=== PATIENT | female | born 1970 | race Caucasian/White ===

== ENCOUNTER 2016-11-29 16:29 | Inpatient (IN) | payer MEDICAID ==
[~2016-11-29] VITALS: Ht 170.2 cm; Wt 65.8 kg
[2016-11-29 16:57] VITALS: BP 161/103
--- NOTE | 2016-11-29 17:52 | NUR ---
Patient ambulated to bed 11 with family. RN evaluating patient at bedside.
--- NOTE | 2016-11-29 18:07 | NUR ---
PT PRESENTS TO ER W/C/O VOMITING X1 WEEK. HX OF DM, FIBROMYALGIA, ANXIETY.PT STATES SHE VOMITTED BLOOD TODAY/SHE FEELS TIGHTNESS ON HER THROAT;O2 SAT OF 98% AT ROOM AIR;ALSO C/O CP; PT HAS TROUBLE OF SPEAKING;SKIN IS PINK/WARM/DRY; AAOX4 WITH EVEN AND STEADY GAIT; LUNGS CLEAR BL; HR EVEN AND REGULAR; PATIENT STATES PAIN OF 8/10 AT THIS TIME;PATIENT POSITIONED FOR COMFORT; HOB ELEVATED; BEDRAILS UP X2; BED DOWN.ALL MONITORS IN PLACED; ER MD MADE AWARE OF PT STATUS.
--- NOTE | 2016-11-29 18:25 | NUR ---
RECHECKED BP OF PT 4X;207/102 BP;ER NOTIFIED;WILL CONTINUE TO MONITOR PT.
--- NOTE | 2016-11-29 18:33 | NUR ---
Dr. Quach evaluating patient at bedside.
[2016-11-29] MEDS ORDERED: NACL 0.9% 1,000 ML IV ONE (18:45)
[2016-11-29] MEDS ORDERED: KETOROLAC 30 MG/ML VIAL IVP ONE (18:45)
[2016-11-29] MEDS ORDERED: PROMETHAZINE 25 MG/ML VIAL IVP ONE (18:45)
--- NOTE | 2016-11-29 19:28 | NUR ---
PER DR. ORTEGA, PATIENT TO FINISH OFF FLUIDS. DR. QUINONES ALSO AWARE. WILL RETAKE BP.
[2016-11-29] MEDS ORDERED: ENALAPRILAT 2.5 MG/2 ML VIAL IVP ONE (19:40)
[2016-11-29] MEDS ORDERED: HALOPERIDOL IM 5 MG/ML VIAL IVP ONE (20:15)
[2016-11-29] MEDS: NACL 0.9% 1,000 ML IV SCH (20:27)
[2016-11-29] MEDS ORDERED: HYDROcodone/APAP 7.5/325 MG 1 TAB PO PRN (20:30)
[2016-11-29] MEDS ORDERED: ACETAMINOPHEN 325 MG TAB PO PRN (20:30)
[2016-11-29] MEDS ORDERED: INSU100I7 SQ (20:37)
[2016-11-29] MEDS ORDERED: LORA-476 PO (20:37)
[2016-11-29] MEDS ORDERED: METO-485 PO (20:37)
[2016-11-29] MEDS ORDERED: DEXTROSE 50% 50 ML SYR IVP PRN ×2 (20:50)
[2016-11-29] MEDS ORDERED: INSULIN LISPRO SLIDING SCALE 100 UNITS/ML VIAL SUBQ PRN (20:50)
--- NOTE | 2016-11-29 21:00 | NUR ---
Patient will be admitted to care of DR. SIMMS. Admited to TELEMETRY. Will go to room 105B. Belongings list completed. Report to DIONISIO SCHREIBER.
--- NOTE | 2016-11-29 21:00 | NUR ---
PT ARRIVED VIA GURNEY FROM ER. PT IS AAOX4, ROOM AIR, ON TELE MONITOR. NO SIGNS OF ACUTE DISTRESS. IV ACCESS ASYMPTOMATIC AND PARENT. WALKER AT THE BEDSIDE. PLAN OF CARE DISCUSSED, PT VERBALIZED UNDERSTANDING. ALL SAFETY MEASURES MET, BED ON LOW POSITION, BILATERAL HALF SIDE RAILS UP, CALL LIGHT WITHIN REACH, WILL CONTINUE TO MONITOR.
[2016-11-29 21:01] LABS: BASOPHILS % (AUTO) 0.4 % (0.0-2.0); EOSINOPHILS # (AUTO) 0.1 K/uL (0-0.4); EOSINOPHILS % (AUTO) 0.7 % (0.0-4.0); HEMATOCRIT 33.5 % (36-48); HEMOGLOBIN 11.3 g/dL (12.0-16.0); LYMPHOCYTES # (AUTO) 0.5 K/uL (2.5-16.5); LYMPHOCYTES % (AUTO) 4.1 % (20.5-51.1); MEAN CORPUSCULAR HEMOGLOBIN 32 pg (27-31); MEAN CORPUSCULAR HGB CONC 34 g/dL (33-37); MEAN CORPUSCULAR VOLUME 95 fL (80-94); MONOCYTES # (AUTO) 0.5 K/uL (0.8-1.0); MONOCYTES % (AUTO) 4.3 % (1.7-9.3); NEUTROPHILS # (AUTO) 11.1 K/uL (1.8-7.7); NEUTROPHILS % (AUTO) 90.5 % (42.2-75.2); PLATELET COUNT (AUTO) 225 K/uL (140-450); RED BLOOD CELL COUNT(AUTO) 3.54 MIL/uL (4.20-5.40); RED CELL DISTRIBUTION WIDTH 12.5 % (11.6-13.7); WHITE BLOOD COUNT (AUTO) 12.2 K/uL (4.8-10.8)
[2016-11-29 21:05] VITALS: BP 190/70
[2016-11-29 21:16] LABS: ANION GAP 14.8 (8-16); CARBON DIOXIDE 25.7 mmol/L (21-32); CREATININE 1.1 mg/dL (0.6-1.3); POTASSIUM 3.5 mmol/L (3.5-5.1)
[2016-11-29] MEDS ORDERED: METOCLOPRAMIDE 10 MG/2 ML INJ VIAL IVP PRN (21:20)
[2016-11-29] MEDS ORDERED: SODIUM PHOSPHATE 118 ML ENEM RC PRN (21:20)
[2016-11-29 21:23] LABS: PROTHROMBIN TIME 10.3 secs (10.8-13.4)
[2016-11-29 21:31] LABS: FREE T4 (FREE THYROXINE) 1.14 ng/dL (0.76-1.46); MAGNESIUM 1.6 mg/dL (1.8-2.4); PHOSPHORUS 4.1 mg/dL (2.5-4.9); THYROID STIMULATING HORMONE 2.65 uIU/mL (0.34-3.74)
[2016-11-29] MEDS: BLOOD GLUCOSE MONITORING 1 DEV DEV FS SCH (21:43)
[2016-11-29] MEDS: INSULIN LISPRO SLIDING SCALE 100 UNITS/ML VIAL SUBQ PRN (21:47)
[2016-11-29] MEDS: DOCUSATE SODIUM 100 MG GELCAP PO SCH (21:50)
[2016-11-29] MEDS: ONDANSETRON 4 MG/2 ML VIAL IVP PRN (22:25)
[2016-11-29] MEDS: LORazepam 1 MG TAB PO PRN (22:26)
[2016-11-29] MEDS: LISINOPRIL 5 MG TAB PO SCH (22:26)
--- NOTE | 2016-11-29 22:31 | NUR ---
DR. BRANNON MADE AWARE OF PT HIGH BLOOD PRESSURE 190/107. ADMINISTERED ORDERED LISINOPRIL FOR HIGH BLOOD PRESSURE, PT TOLERATED WELL. WILL CONTINUE TO MONITOR.
--- NOTE | 2016-11-29 23:31 | NUR ---
DR BRANNON MADE AWARE OF NEW BLOOD PRESSURE READING OF 176/90, BLOOD PRESSURE IS TRENDING DOWN. DR BRANNON ORDERED TO CONTINUE MONITORING PT AND NO FURTHER MEDICATION NEEDED AT THIS TIME.
--- NOTE | 2016-11-29 23:48 | NUR ---
PT IS SLEEPING, EASY TO AROUSE. NO SIGNS OF ACUTE DISTRESS. BED ON LOW POSITION, BILATERAL HALF SIDE RAILS UP, CALL LIGHT WITHIN REACH, WILL CONTINUE TO MONITOR.
[2016-11-30] VITALS: BP 176/90
[2016-11-30 04:00] VITALS: BP 164/93
--- NOTE | 2016-11-30 04:49 | NUR ---
DR BRANNON PAGED REGARDING MAGNESIUM RESULTS OF 1.6. WILL WAIT FOR CALL BACK.
--- NOTE | 2016-11-30 04:50 | NUR ---
DR BRANNON CALLED BACK. NOTIFIED OF PT MAGNESIUM OF 1.6. DR BRANNON WILL PUT IN NEW ORDER TO BE GIVEN FOR LOW MAGNESIUM. WILL ALSO PUT IN ORDER FOR FLU AND PNEUMONIA VACCINE.
--- NOTE | 2016-11-30 04:54 | NUR ---
PT IS SLEEPING, EASY TO AROUSE. NO SIGNS OF ACUTE DISTRESS, BED IN LOW POSITION, BILATERAL HALF SIDE RAILS UP, CALL LIGHT WITHIN REACH, WILL CONTINUE TO MONITOR.
[2016-11-30] MEDS ORDERED: PNEUMOCOCCAL VACCINE 23 MCG/0.5 ML VIAL IMVAC SCH (04:55)
[2016-11-30] MEDS ORDERED: INFLUENZA VIRUS VACCINE QUAD 0.5 ML SYR IMVAC SCH (04:55)
[2016-11-30] MEDS: BLOOD GLUCOSE MONITORING 1 DEV DEV FS SCH ×4 (06:51→20:54)
--- NOTE | 2016-11-30 07:20 | NUR ---
ENDORSED PT TO AM NURSE. PT IN STABLE CONDITION.
--- NOTE | 2016-11-30 07:21 | NUR ---
RECEIVED PT FROM THE DRIVER'S LICENSE EXAMINER NURSE AT BEDSIDE FOR CONTINUITY OF CARE. PT IS AWAKE AND ALERT. INTRODUCED MYSELF AND UPDATED THE BOARD. PT HAS A WALKER AT BEDSIDE. PT ON ROOM AIR. SKIN INTACT. IV ON L AC 22G NS 50ML, INFUSING. V/S: BP HIGH X2 ON BOTH ARMS. 185/95. C/O ABD PAIN AND NAUSEA. WILL MEDICATE WITH MORNING MEDS. C/O SORE THROAT. WILL CRUSH MEDS AND PUT IN APPLE SAUCE. RESIDENT MD IN ROOM. WILL START ON TORADOL AND SUPPOSITORIES AND ENEMA TO CLEAR OUT BOWELS. PT VERBALIZED UNDERSTANDING. LOW ON MAG TODAY 1.6. SPOKE TO DR. PARIKH. WILL CONTINUE TO MONITOR PT.
[2016-11-30 07:37] LABS: BASOPHILS # (AUTO) 0.2 K/uL (0.00-0.22); EOSINOPHILS # (AUTO) 0.1 K/uL (0-0.4); EOSINOPHILS % (AUTO) 0.6 % (0.0-4.0); HEMATOCRIT 29.2 % (36-48); HEMOGLOBIN 9.5 g/dL (12.0-16.0); LYMPHOCYTES # (AUTO) 0.8 K/uL (2.5-16.5); MEAN CORPUSCULAR HEMOGLOBIN 31 pg (27-31); MEAN CORPUSCULAR HGB CONC 33 g/dL (33-37); MEAN CORPUSCULAR VOLUME 96 fL (80-94); MONOCYTES # (AUTO) 0.9 K/uL (0.8-1.0); MONOCYTES % (AUTO) 10.1 % (1.7-9.3); NEUTROPHILS # (AUTO) 6.8 K/uL (1.8-7.7); NEUTROPHILS % (AUTO) 78.3 % (42.2-75.2); PLATELET COUNT (AUTO) 212 K/uL (140-450); RED BLOOD CELL COUNT(AUTO) 3.05 MIL/uL (4.20-5.40); RED CELL DISTRIBUTION WIDTH 12.6 % (11.6-13.7); WHITE BLOOD COUNT (AUTO) 8.8 K/uL (4.8-10.8)
[2016-11-30 08:00] VITALS: BP 188/91
[2016-11-30 08:02] LABS: ANION GAP 8.7 (8-16); CARBON DIOXIDE 27.8 mmol/L (21-32); CREATININE 1.1 mg/dL (0.6-1.3); POTASSIUM 3.5 mmol/L (3.5-5.1)
[2016-11-30 08:04] LABS: MAGNESIUM 1.6 mg/dL (1.8-2.4); PHOSPHORUS 3.9 mg/dL (2.5-4.9)
[2016-11-30] MEDS: MAGNESIUM CHLORIDE 64 MG TABEC PO SCH (08:39)
[2016-11-30] MEDS: LISINOPRIL 5 MG TAB PO SCH (08:41)
[2016-11-30] MEDS: DOCUSATE SODIUM 100 MG GELCAP PO SCH ×2 (08:41→20:13)
[2016-11-30] MEDS: ONDANSETRON 4 MG/2 ML VIAL IVP PRN (08:42)
[2016-11-30] MEDS: KETOROLAC 30 MG/ML VIAL IVP PRN (08:42)
--- NOTE | 2016-11-30 08:50 | NUR ---
ADMINISTERED MORNING MEDS, INCLUDING ZOFRAN AND TORADOL. PT TOLERATED WELL. WAITING ON SUPPOSITORY ORDERS. WILL CONTINUE TO MONITOR PT.
[2016-11-30] MEDS ORDERED: BISACODYL 10 MG SUPP RC SCH (09:00)
[2016-11-30] MEDS ORDERED: LISINOPRIL 5 MG TAB PO SCH (09:00)
[2016-11-30] MEDS ORDERED: MAGNESIUM OXIDE 400 MG TAB PO SCH (09:10)
[2016-11-30] MEDS ORDERED: LABETALOL 100 MG TAB PO SCH (09:19)
--- NOTE | 2016-11-30 09:51 | NUR ---
PATIENT HAS BEEN SCREENED AND CATEGORIZED HIGH NUTRITION RISK. PATIENT WILL BE SEEN WITHIN 1-2 DAYS OF ADMISSION. 11/30/16-12/01/[address]
--- NOTE | 2016-11-30 10:11 | NUR ---
PT DOWNGRADED TO MED/SURG. REMOVED TELE MONITOR.
[2016-11-30 12:00] VITALS: BP 137/76
[2016-11-30] MEDS: LORazepam 1 MG TAB PO PRN ×2 (12:09→21:08)
--- NOTE | 2016-11-30 12:19 | NUR ---
SO FAR, NO BM TODAY. LAST BM WAS ABOUT 1.5 WEEKS AGO. NO BM EVEN WITH THE SUPPOSITORY. WE WILL TRY ENEMA LATER IN THE AFTERNOON. PER PT, TORADOL HELPED WITH PAIN. NO PAIN AT THIS MOMENT. ADMINISTERED MAG OX AND ATIVAN FOR ANXIETY. PT TOLERATED WELL.
--- NOTE | 2016-11-30 13:03 | NUR ---
LYLE NOTE SPOKE WITH LYLE SALAZAR OF [facility] PH# [phone] EXT [phone] AND SHE SAID [facility] DOES NOT NEED REVIEWS FOR THIS ADMISSION. PER LYLE SAN, REVIEWS AND DISCHARGE NEEDS SHOULD ONLY BE SENT TO [facility]. INITIAL REVIEW FAXED TO [facility] [phone] PH# [phone] LYLE KENNY EXT [phone].
[2016-11-30] MEDS: INSULIN LISPRO SLIDING SCALE 100 UNITS/ML VIAL SUBQ PRN ×3 (13:11→20:16)
--- NOTE | 2016-11-30 13:11 | NUR ---
PT C/O OF IV LEAKING. IV REINFORCED. PT TOLERATED WELL. WILL CONTINUE TO MONITOR PT.
--- NOTE | 2016-11-30 13:53 | NUR ---
11/30/16 RD INITIAL ASSESSMENT COMPLETED PLEASE REFER TO NUTRITION ASSESSMENT UNDER CARE ACTIVITY FOR ESTIMATED NUTRITIONAL NEEDS. 1. CONTINUE CLEAR LIQUID DIET 2. WHEN MEDICALLY FEASIBLE, ADVANCE TO 60 GMS CONSISTENT CARBOHYDRATE TOLERATED 3. RD TO FOLLOW UP WITHIN 2-3 DAYS; HIGH RISK JONATHAN PAYAN, NEENA
--- NOTE | 2016-11-30 14:58 | NUR ---
R/T HERE FOR ECHO.
--- NOTE | 2016-11-30 15:51 | NUR ---
ADMINISTERED FLEET ENEMA. PT TOLERATED WELL. WILL AWAIT AND SEE IF THE ENEMA WORKED.
[2016-11-30 16:00] VITALS: BP 160/86
--- NOTE | 2016-11-30 16:30 | NUR ---
PT CLAIMS SHE HAD A VERY SMALL BM. STILL FEELS VERY FULL. ENCOURAGED PT TO WALK. STUDENT RN WILL WALK WITH HER IN THE HALLS.
--- NOTE | 2016-11-30 18:30 | NUR ---
AMBULATED IN THE HALLWAY. HAD ANOTHER SMALL BM.
[2016-11-30] MEDS ORDERED: METOCLOPRAMIDE 10 MG/2 ML INJ VIAL IVP SCH (19:15)
--- NOTE | 2016-11-30 19:20 | NUR ---
ENDORSED PT TO THE NIGHTSHIFT RN AT BEDSIDE FOR CONTINUITY OF CARE. PT IS AWAKE AND ALERT. IN STABLE CONDITION.
--- NOTE | 2016-11-30 19:22 | NUR ---
RECEIVED PT ON BED AAOX4, DENIES ANY PAIN, IVF INFUSING WELL, PLAN OF CARE DISCUSS, SAFETY MEASURES IN PLACE, CALL LIGHT WITHIN REACH.
[2016-11-30] MEDS ORDERED: METOCLOPRAMIDE 10 MG/2 ML INJ VIAL ONE (19:50)
--- NOTE | 2016-11-30 21:10 | NUR ---
PT COMPLAINING OF ANXIETY, MEDICATED PRN FOR ANXIETY WITH ATIVAN PO ORDERED, DENIES ANY NAUSEA, ALL NEEDS ATTENDED.
[2016-11-30] MEDS: NACL 0.9% 1,000 ML IV SCH (21:22)
[2016-12-01] VITALS: BP 158/89
--- NOTE | 2016-12-01 | NUR ---
PT AWAKE, PT VERBALIZED HAD SMALL LOOSE STOOL, DENIES ANY PAIN OR NAUSEA, VITAL SIGNS TAKEN, BP SLIGHTLY ELEVATED, ASYMPTOMATIC, IVF INFUSING WELL, CONTINUE TO MONITOR CLOSELY.
[2016-12-01] MEDS: NACL 0.9% 1,000 ML IV SCH (04:13)
[2016-12-01] MEDS: ONDANSETRON 4 MG/2 ML VIAL IVP PRN (04:18)
--- NOTE | 2016-12-01 04:20 | NUR ---
PT COMPLAINING OF NAUSEA, NO VOMITING NOTED, MEDICATED PRN WITH ZOFRAN IVP, MONITORED CLOSELY.
[2016-12-01 04:51] LABS: APPEARANCE,URINE HAZY (CLEAR); BILIRUBIN,URINE NEGATIVE (NEGATIVE); BLOOD, URINE 1+ (NEGATIVE); COLOR,URINE YELLOW (YELLOW); LEUKOCYTE ESTERASE ,URINE NEGATIVE (NEGATIVE); NITRITE, URINE NEGATIVE (NEGATIVE); UGLUCOSE TRACE (NEGATIVE)
[2016-12-01 04:59] LABS: BARBITURATE, URINE NEG. ng/ml (NEG <=200); BENZODIAZEPINE, URINE NEG. ng/mL (NEG <=200); CANNABINOID, URINE NEG. ng/mL (NEG <=50); COCAINE, URINE NEG. ng/mL (NEG <=300); OPIATE, URINE NEG. ng/mL (NEG <=2000); PHENCYCLIDINE SCREEN,URINE NEG. ng/mL (NEG <=25)
[2016-12-01 05:12] LABS: RBC,URINE 0-5 (RARE) /HPF (0-5)
[2016-12-01 05:14] LABS: YEAST,URINE Moderate /HPF (None Seen)
[2016-12-01 05:47] LABS: BASOPHILS # (AUTO) 0.1 K/uL (0.00-0.22); BASOPHILS % (AUTO) 1.9 % (0.0-2.0); EOSINOPHILS # (AUTO) 0.1 K/uL (0-0.4); EOSINOPHILS % (AUTO) 1.8 % (0.0-4.0); HEMATOCRIT 30.4 % (36-48); LYMPHOCYTES % (AUTO) 15.7 % (20.5-51.1); MEAN CORPUSCULAR HEMOGLOBIN 31 pg (27-31); MEAN CORPUSCULAR HGB CONC 33 g/dL (33-37); MEAN CORPUSCULAR VOLUME 95 fL (80-94); MONOCYTES # (AUTO) 0.6 K/uL (0.8-1.0); MONOCYTES % (AUTO) 8.9 % (1.7-9.3); NEUTROPHILS # (AUTO) 4.5 K/uL (1.8-7.7); NEUTROPHILS % (AUTO) 71.7 % (42.2-75.2); PLATELET COUNT (AUTO) 214 K/uL (140-450); RED BLOOD CELL COUNT(AUTO) 3.21 MIL/uL (4.20-5.40); RED CELL DISTRIBUTION WIDTH 12.4 % (11.6-13.7); WHITE BLOOD COUNT (AUTO) 6.4 K/uL (4.8-10.8)
--- NOTE | 2016-12-01 05:50 | NUR ---
PT AWAKE, DENIES ANY PAIN OR NAUSEA, BLOOD SUGAR CHECKED WITH 128 RESULT, DUE PO PROTONIX GIVEN, TOLERATED WELL, PT VERBALIZED X2 LOOSE BM THE WHOLE SHIFT, IVF INFUSING WELL, MONITORED CLOSELY.
[2016-12-01 06:16] LABS: ANION GAP 10.7 (8-16); CARBON DIOXIDE 26.7 mmol/L (21-32); POTASSIUM 3.4 mmol/L (3.5-5.1)
[2016-12-01 06:18] VITALS: BP 138/94
[2016-12-01] MEDS: KETOROLAC 30 MG/ML VIAL IVP PRN (06:18)
--- NOTE | 2016-12-01 06:20 | NUR ---
PT COMPLAINING OF PAIN, MEDICATED PRN WITH TORADOL IVP, BP-138/94 ON THE LEFT ARM, HR-83, MONITORED CLOSELY.
[2016-12-01] MEDS ORDERED: PANTOPRAZOLE 40 MG TABEC PO SCH (06:30)
[2016-12-01] MEDS: BLOOD GLUCOSE MONITORING 1 DEV DEV FS SCH ×2 (06:37→11:18)
--- NOTE | 2016-12-01 07:15 | NUR ---
PT SLEEPING, NO SIGNS OF DISTRESS, REPORT GIVEN TO CANDIE GREENE FOR CONTINUITY OF CARE.
--- NOTE | 2016-12-01 07:26 | NUR ---
RECEIVED PT IN BED. AWAKE, WATCHING TV. ALERT ORIENTEDX4. NO SOB NOTED. DENIES ANY PAIN OR DISCOMFORT. PT AMBULATORY. ENCOURAGED PT TO AMBULATE. SAFETY PRECAUTION IN PLACE. CALL LIGHT WITHIN REACH.
[2016-12-01 07:51] VITALS: BP 178/93
[2016-12-01] MEDS: DOCUSATE SODIUM 100 MG GELCAP PO SCH (08:09)
[2016-12-01] MEDS: MAGNESIUM CHLORIDE 64 MG TABEC PO SCH (08:09)
[2016-12-01] MEDS: LORazepam 1 MG TAB PO PRN (08:14)
[2016-12-01] MEDS ORDERED: LISI10TA11 PO (08:15)
[2016-12-01] MEDS ORDERED: DOCU-299 PO (08:20)
[2016-12-01] MEDS ORDERED: ONDA8TAB1 PO (08:23)
[2016-12-01] MEDS ORDERED: OMEP20TC10 PO (08:35)
[2016-12-01] MEDS ORDERED: LISINOPRIL 5 MG TAB PO SCH (09:00)
[2016-12-01] MEDS ORDERED: LABETALOL 100 MG TAB PO SCH (09:00)
[2016-12-01] MEDS ORDERED: POTASSIUM CHLORIDE 10 MEQ TABER PO SCH (09:13)
[2016-12-01 09:15] VITALS: BP 163/94
[2016-12-01] MEDS ORDERED: BISACODYL 10 MG SUPP RC PRN (09:20)
--- NOTE | 2016-12-01 09:20 | NUR ---
DR. PARIKH MADE AWARE OF ELEVATED BLOOD PRESSURE THIS MORNING AND THE RECHECKED BLOOD PRESSURE READING AFTER MORNING BP MEDS WERE GIVEN. TO ORDERS MADE AND CARRIED OUT.
[2016-12-01] MEDS ORDERED: ENALAPRILAT 2.5 MG/2 ML VIAL IVP PRN ×2 (09:30→09:50)
--- NOTE | 2016-12-01 09:35 | NUR ---
RECEIVED A CALL FROM THE PHARMACY REGARDING THE DOSE FOR VASOTEC. PER PHARMACY STARTING DOSE IS AT 1.25MG AND ORDERED DOSE IS [address] PARIKH AWAITING CALL BACK TO CLARIFY.
--- NOTE | 2016-12-01 09:49 | NUR ---
CM NOTE CONCURRENT REVIEW FAXED TO [facility] [phone] # [phone] CM SONNA EXT [phone].
--- NOTE | 2016-12-01 09:57 | NUR ---
DR. PARIKH CALLED BACK AND ORDERS WERE CLARIFIED.
--- NOTE | 2016-12-01 10:28 | NUR ---
FLU VACCINE AND PNA VACCINE OFFERED TO PT. PT AGREES AND VERBALIZED UNDERSTANDING. FLU VACCINE GIVEN IM ON LEFT DELTOID. AND PNA VACCINE GIVEN IM ON RIGHT DELTOID. TOLERATED WELL.
[2016-12-01 11:13] VITALS: BP 144/92
[2016-12-01 11:16] VITALS: BP 144/92
--- NOTE | 2016-12-01 11:16 | NUR ---
DR. PARIKH MADE AWARE OF LATEST BLOOD PRESSURE READING OF PT AND OK FOR DISCHARGE. NO SOB NOTED. DENIES ANY PAIN OR DISCOMFORT AT THIS TIME. DAUGHTER AT BEDSIDE.
--- NOTE | 2016-12-01 11:18 | NUR ---
BLOOD SUGAR WAS CHECKED WITH A 163MG/DL READING. OFFERED PT LUNCH BEFORE GETTING DISCHARGED SO SHE CAN RECEIVE HER INSULIN, BUT PT VERBALIZED THAT SHE DOESN'T WANT TO EAT LUNCH ANYMORE AND JUST WANTS TO GET DISCHARGED. 2 UNITS OF HUMALOG INSULIN PER SLIDING SCALE HELD.
--- NOTE | 2016-12-01 11:35 | NUR ---
DISCHARGE INSTRUCTIONS AND HEALTH TEACHINGS GIVEN AND EXPLAINED TO PT. PT VERBALIZED UNDERSTANDING. DAUGHTER AT BEDSIDE. PT SIGNED DISCHARGE PAPERS. REMINDED PT TO FOLLOW UP WITH PCP PER SCHEDULED ON DISCHARGE PAPERS. PT VERBALIZED UNDERSTANDING. IV CANNULA REMOVED AND INTACT. NAME ARMBAND REMOVED. NO SOB NOTED. DENIES ANY PAIN OR DISCOMFORT AT THIS TIME. PT REFUSED TO BE WHEELED OUT GOING TO THE HOSPITAL PARKING LOT SINCE ACCORDING TO PT HER OTHER DAUGHTER IS ON LABOR RIGHT NOW HERE AT [facility] AND SHE WOULD WANT TO GO THERE TO SEE HER. DAUGHTER ASSISTED PT WITH HER WALKER AND WENT TO OB DEPARTMENT. PT DISCHARGED ON STABLE CONDITION.
[2016-12-01] MEDS ORDERED: METOCLOPRAMIDE 10 MG/2 ML INJ VIAL IVP PRN (19:15)
== END 2016-12-01 11:35 | disposition home or self-care (01) | DRG 48 ==
LOC: MED 16:29 → MTU 20:35
PROVIDERS: ADMIT Family Medicine Sports Medicine; ATTEND Family Medicine Sports Medicine
DX: E11.43 Type 2 diabetes mellitus with diabetic autonomic (poly)neuropathy (principal); D68.59 Other primary thrombophilia; E11.51 Type 2 diabetes mellitus with diabetic peripheral angiopathy without gangrene; E11.65 Type 2 diabetes mellitus with hyperglycemia; E83.42 Hypomagnesemia; K31.84 Gastroparesis; I16.0 Hypertensive urgency; M79.7 Fibromyalgia; F41.9 Anxiety disorder, unspecified; E83.51 Hypocalcemia; E87.6 Hypokalemia; I10 Essential (primary) hypertension; E78.00 Pure hypercholesterolemia, unspecified; Z88.8 Allergy status to other drugs, medicaments and biological substances; Z79.4 Long term (current) use of insulin
CPT/HCPCS: 36415; 71010; 80048; 80305; 81001; 81025; 82150; 82948; 83036; 83605; 83690; 83735; 83880; 84100; 84439; 84443; 84484; 85025; 85610; 85730; 87081; 87086; 90658; 90732; 93005; 93925; 93970; 96361; 96374; 96375; 99285; J1630; J1815; J1885; J2405; J2550; J2765; J3490; J7030; Q0092

== ENCOUNTER 2016-12-29 16:03 | Inpatient (IN) | payer MEDICAID ==
[~2016-12-29] VITALS: Ht 170.2 cm; Wt 71.7 kg
[~2016-12-29 16:03] MED LIST: DOCU-299 PO; INSU100I7 SQ; LISI10TA11 PO; LORA-476 PO; OMEP20TC10 PO; ONDA8TAB1 PO
[2016-12-29 16:19] VITALS: BP 158/79
--- NOTE | 2016-12-29 16:35 | NUR ---
PATIENT BIB AUNT WITH C/O 09/24 "SHARP" NON PROVOKED INTERMITTENT MIDSTERNAL CHEST PAIN X YESTERDAY AT APPROX 1999; PT STATES SHE WAS LAYING DOWN WHEN CP;STARTED;NON PITTING EDEMA NOTED ON BILATERAL LOWER EXTREMITIES;HX OF DM, HTN, FIBROMYALGIA.FEELS NAUSEOUS BUT DENIES V/D; PER PT SHE HAS A DRY COUGH AND RUNNY NOSE THAT SATRTED 4 DAYS AGO;SKIN IS PINK/WARM/DRY; AAOX4 WITH EVEN AND STEADY GAIT; LUNGS CLEAR BL; HR EVEN AND REGULAR;PATIENT POSITIONED FOR COMFORT; HOB ELEVATED; BEDRAILS UP X2; BED DOWN. ALL MONITORS IN PLACED;ER MD MADE AWARE OF PT STATUS.
[2016-12-29] MEDS ORDERED: ASPIRIN 81 MG TAB.CHEW PO ONE (16:40)
[2016-12-29 17:02] LABS: BASOPHILS % (AUTO) 0.5 % (0.0-2.0); EOSINOPHILS # (AUTO) 0.1 K/uL (0-0.4); EOSINOPHILS % (AUTO) 1.3 % (0.0-4.0); HEMATOCRIT 30.4 % (36-48); HEMOGLOBIN 9.9 g/dL (12.0-16.0); LYMPHOCYTES # (AUTO) 0.7 K/uL (2.5-16.5); LYMPHOCYTES % (AUTO) 10.6 % (20.5-51.1); MEAN CORPUSCULAR HEMOGLOBIN 31 pg (27-31); MEAN CORPUSCULAR HGB CONC 33 g/dL (33-37); MEAN CORPUSCULAR VOLUME 94 fL (80-94); MONOCYTES # (AUTO) 0.6 K/uL (0.8-1.0); MONOCYTES % (AUTO) 7.9 % (1.7-9.3); NEUTROPHILS # (AUTO) 5.6 K/uL (1.8-7.7); NEUTROPHILS % (AUTO) 79.7 % (42.2-75.2); PLATELET COUNT (AUTO) 249 K/uL (140-450); RED BLOOD CELL COUNT(AUTO) 3.25 MIL/uL (4.20-5.40); RED CELL DISTRIBUTION WIDTH 12.4 % (11.6-13.7)
--- NOTE | 2016-12-29 17:09 | NUR ---
DR SPRING AT BEDSIDE.
[2016-12-29 17:18] LABS: PROTHROMBIN TIME 9.8 secs (10.8-13.4)
[2016-12-29 17:20] LABS: ALBUMIN 2.1 g/dL (3.4-5.0); ANION GAP 10.8 (8-16); CARBON DIOXIDE 27.5 mmol/L (21-32); CREATININE 1.3 mg/dL (0.6-1.3); POTASSIUM 4.3 mmol/L (3.5-5.1); TOTAL BILIRUBIN 0.3 mg/dL (0.0-1.0)
--- NOTE | 2016-12-29 17:24 | NUR ---
RECYCLED PT'S BP 3 X;BP OF 198/106;AZ 84;DR SPRING NOTIFIED;AWAITING NEW ORDER.
[2016-12-29] MEDS ORDERED: FUROSEMIDE 20 MG/2 ML VIAL IVP ONE (17:45)
[2016-12-29] MEDS ORDERED: ENALAPRILAT 2.5 MG/2 ML VIAL IVP ONE (17:55)
[2016-12-29] MEDS ORDERED: cefTRIAXone 1,000 MG VIAL ONE (17:59)
[2016-12-29] MEDS ORDERED: HYDROcodone/APAP 7.5/325 MG 1 TAB PO PRN (18:10)
[2016-12-29] MEDS ORDERED: ACETAMINOPHEN 325 MG TAB PO PRN (18:10)
[2016-12-29] MEDS ORDERED: CHLO25TA33 PO (18:36)
[2016-12-29] MEDS ORDERED: LORA-476 PO (18:36)
[2016-12-29] MEDS ORDERED: ACET-8386 PO (18:36)
[2016-12-29] MEDS ORDERED: [UNRECOGNIZED DRUG - CODE] PO (18:36)
[2016-12-29] MEDS ORDERED: IMI25 PO (18:36)
[2016-12-29] MEDS ORDERED: ATOR40TA PO (18:36)
[2016-12-29] MEDS ORDERED: ZOLP5TAB1 PO (18:36)
[2016-12-29] MEDS ORDERED: FERR324T29 PO (18:36)
[2016-12-29] MEDS ORDERED: SITA100T8 PO (18:36)
[2016-12-29] MEDS ORDERED: MEDR10TA PO (18:36)
[2016-12-29] MEDS ORDERED: APID SQ (18:36)
[2016-12-29] MEDS ORDERED: [UNRECOGNIZED DRUG - CODE] PO (18:36)
[2016-12-29] MEDS ORDERED: METO-485 PO (18:36)
[2016-12-29] MEDS ORDERED: LOSA50TA1 PO (18:36)
[2016-12-29] MEDS ORDERED: PREG225C PO (18:36)
[2016-12-29 18:43] LABS: CHOL/HDL RATIO 3.6 (1-4.5); FREE T4 (FREE THYROXINE) 0.86 ng/dL (0.76-1.46); MAGNESIUM 1.8 mg/dL (1.8-2.4); PHOSPHORUS 4.4 mg/dL (2.5-4.9); THYROID STIMULATING HORMONE 6.44 uIU/mL (0.34-3.74)
[2016-12-29] MEDS ORDERED: SUMAtriptan 25 MG TAB PO PRN (18:45)
--- NOTE | 2016-12-29 18:50 | NUR ---
TRIED TO GIVE REPORT TO CANDIE GREENBERG;THEY SAID TO WAIT UNTIL BLOOD PRESSURE GOES DOWN;
[2016-12-29] MEDS ORDERED: LABETALOL 100 MG/20 ML VIAL IVP ONE (18:55)
[2016-12-29] MEDS ORDERED: MORPHINE SULFATE 2 MG/ML SYR IVP PRN (18:55)
--- NOTE | 2016-12-29 19:02 | NUR ---
Patient will be admitted to care of DR MONROE. Admited to TELE. Will go to [id number]. Belongings list completed. Report to DIONICIO SCHREIBER.
[2016-12-29 19:05] LABS: APPEARANCE,URINE CLEAR (CLEAR); BILIRUBIN,URINE NEGATIVE (NEGATIVE); BLOOD, URINE 1+ (NEGATIVE); COLOR,URINE YELLOW (YELLOW); LEUKOCYTE ESTERASE ,URINE NEGATIVE (NEGATIVE); NITRITE, URINE NEGATIVE (NEGATIVE); UGLUCOSE 1+ (NEGATIVE)
[2016-12-29 19:14] LABS: BARBITURATE, URINE NEG. ng/ml (NEG <=200); BENZODIAZEPINE, URINE NEG. ng/mL (NEG <=200); CANNABINOID, URINE NEG. ng/mL (NEG <=50); COCAINE, URINE NEG. ng/mL (NEG <=300); OPIATE, URINE NEG. ng/mL (NEG <=2000); PHENCYCLIDINE SCREEN,URINE NEG. ng/mL (NEG <=25); RBC,URINE 0-5 (RARE) /HPF (0-5); WBC,URINE 0-5 (RARE) /HPF (0-5)
[2016-12-29] MEDS ORDERED: DEXTROSE 50% 50 ML SYR IVP PRN (19:20)
--- NOTE | 2016-12-29 19:25 | NUR ---
RECEIVED REPORT FROM DAY SHIFT RN AND PT ARRIVED FROM ER VIA GURNEY ACCOMPANIED BY ER NURSE. PT IS A/OX4, ON ROOM AIR. PT HAS A RIGHT FOREARM IV 20G. PT SKIN IS INTACT. SAFETY PRECAUTIONS IN PLACE. UPDATED BOARD. DISCUSSED PLAN OF CARE WITH PT, PT VERBALIZED UNDERSTANDING. VITAL SIGNS WITHIN NORMAL LIMITS. PT IN STABLE CONDITION, NO SIGNS OF DISTRESS NOTED. BED IN LOW POSITION, CALL LIGHT WITHIN REACH. WILL CONTINUE TO MONITOR.
[2016-12-29 20:00] VITALS: BP 178/90
[2016-12-29] MEDS ORDERED: LISINOPRIL 5 MG TAB PO SCH (20:15)
[2016-12-29] MEDS ORDERED: NITROGLYCERIN 0.4 MG TAB SL PRN (20:40)
[2016-12-29] MEDS ORDERED: LORazepam 1 MG TAB PO PRN (21:00)
[2016-12-29] MEDS ORDERED: INSULIN DETEMIR 100 UNITS/ML 10 ML VIAL SUBQ SCH (21:00)
[2016-12-29] MEDS ORDERED: ATORVASTATIN 20 MG TAB PO SCH (21:00)
[2016-12-29] MEDS ORDERED: LORazepam 1 MG TAB PO SCH (21:00)
[2016-12-29] MEDS ORDERED: PREGABALIN 50 MG CAP PO SCH (21:00)
[2016-12-29] MEDS ORDERED: ZOLPIDEM 5 MG TAB PO SCH (21:00)
[2016-12-29] MEDS ORDERED: METOPROLOL 25 MG TAB PO SCH (21:00)
[2016-12-29] MEDS: BLOOD GLUCOSE MONITORING 1 DEV DEV FS SCH (21:13)
[2016-12-29] MEDS: DOCUSATE SODIUM 100 MG GELCAP PO SCH (21:15)
[2016-12-29] MEDS: ONDANSETRON 4 MG/2 ML VIAL IVP PRN (22:42)
[2016-12-30] VITALS: BP 154/84
[2016-12-30 04:00] VITALS: BP 194/92
[2016-12-30] MEDS: ONDANSETRON 4 MG/2 ML VIAL IVP PRN ×3 (04:11→16:37)
--- NOTE | 2016-12-30 04:33 | NUR ---
SPOKE TO DR AMES ABOUT PT BP BEING 194/92. WILL ORDER SOMETHING.
[2016-12-30] MEDS ORDERED: hydrALAZINE 20 MG/ML VIAL IVP SCH (05:20)
[2016-12-30] MEDS: BLOOD GLUCOSE MONITORING 1 DEV DEV FS SCH ×3 (06:43→16:44)
[2016-12-30] MEDS: INSULIN LISPRO SLIDING SCALE 100 UNITS/ML VIAL SUBQ PRN ×3 (06:43→17:12)
[2016-12-30] MEDS ORDERED: LORazepam 1 MG TAB PO PRN (07:04)
--- NOTE | 2016-12-30 07:30 | NUR ---
ENDORSED PT TO DAY SHIFT NURSE FOR CONTINUITY OF CARE. PT IN STABLE CONDITION, WITHOUT SIGNS OF DISTRESS.
--- NOTE | 2016-12-30 07:31 | NUR ---
RECEIVED REPORT FROM PRICING ASSOCIATE NURSE FERMIN AT BEDSIDE FOR CONTINUITY OF CARE. PT IS AWAKE AND ORIENTED. INTRODUCED SELF AND UPDATED BOARD. PT IN STABLE CONDITION.
[2016-12-30 08:00] VITALS: BP 155/89
[2016-12-30] MEDS: METOCLOPRAMIDE 10 MG TAB PO SCH ×3 (08:26→16:37)
--- NOTE | 2016-12-30 08:26 | NUR ---
ADMINISTERED 50ML ROCEPHIN IVPB AND SCHEDULED MEDS. PT WAS COMPLAINING OF NAUSEA. ADMINISTERED ZOFRAN IVP. PT TOLERATED MEDS WELL.
[2016-12-30] MEDS: DOCUSATE SODIUM 100 MG GELCAP PO SCH (08:29)
[2016-12-30] MEDS: METOPROLOL 25 MG TAB PO SCH (08:30)
[2016-12-30] MEDS ORDERED: LACTOBACILLUS RHAMNOSUS GG 1 EACH CAP PO SCH (09:00)
[2016-12-30] MEDS ORDERED: medroxyPROGESTERone 10 MG TAB PO SCH (09:00)
[2016-12-30] MEDS ORDERED: LISINOPRIL 5 MG TAB PO SCH ×2 (09:00)
[2016-12-30] MEDS ORDERED: ECOTRIN 81 MG TABEC PO SCH (09:00)
[2016-12-30] MEDS ORDERED: FERROUS SULFATE 325 MG TABEC PO SCH (09:00)
[2016-12-30] MEDS ORDERED: HYDROCHLOROTHIAZIDE 25 MG TAB PO SCH ×2 (09:00)
[2016-12-30] MEDS ORDERED: LOSARTAN 50 MG TAB PO SCH ×3 (09:00→21:00)
--- NOTE | 2016-12-30 09:08 | NUR ---
PATIENT HAS BEEN SCREENED AND CATEGORIZED MODERATE NUTRITION RISK. PATIENT WILL BE SEEN WITHIN 3-5 DAYS OF ADMISSION. 01/01/17-01/03/[address]
[2016-12-30 11:29] LABS: BASOPHILS # (AUTO) 0.1 K/uL (0.00-0.22); BASOPHILS % (AUTO) 0.8 % (0.0-2.0); EOSINOPHILS % (AUTO) 0.7 % (0.0-4.0); HEMATOCRIT 29.1 % (36-48); HEMOGLOBIN 9.8 g/dL (12.0-16.0); LYMPHOCYTES # (AUTO) 0.3 K/uL (2.5-16.5); LYMPHOCYTES % (AUTO) 4.9 % (20.5-51.1); MEAN CORPUSCULAR HEMOGLOBIN 31 pg (27-31); MEAN CORPUSCULAR HGB CONC 34 g/dL (33-37); MEAN CORPUSCULAR VOLUME 93 fL (80-94); MONOCYTES # (AUTO) 0.4 K/uL (0.8-1.0); MONOCYTES % (AUTO) 6.3 % (1.7-9.3); NEUTROPHILS % (AUTO) 87.3 % (42.2-75.2); PLATELET COUNT (AUTO) 237 K/uL (140-450); RED BLOOD CELL COUNT(AUTO) 3.14 MIL/uL (4.20-5.40); RED CELL DISTRIBUTION WIDTH 12.3 % (11.6-13.7); WHITE BLOOD COUNT (AUTO) 6.8 K/uL (4.8-10.8)
[2016-12-30] MEDS ORDERED: PROMETHAZINE 25 MG/ML VIAL IM PRN (11:40)
[2016-12-30 11:56] LABS: ANION GAP 12.7 (8-16); CARBON DIOXIDE 26.2 mmol/L (21-32); CREATININE 1.3 mg/dL (0.6-1.3); POTASSIUM 3.9 mmol/L (3.5-5.1)
[2016-12-30 12:00] VITALS: BP 192/107
[2016-12-30 12:01] LABS: MAGNESIUM 1.7 mg/dL (1.8-2.4); PHOSPHORUS 5.4 mg/dL (2.5-4.9)
--- NOTE | 2016-12-30 12:23 | NUR ---
REPORTED UNRELIEVED NAUSEA FROM LAST DOSE OF ZOFRAN AND BP OF 192/[address] BLOOD. ADMINISTERED PHENERGAN IM FOR NAUSEA. BS WAS 190 ADMINISTERED 2 UNITS OF INSULIN SUBQ. PT TOLERATED MEDS WELL. BED IN LOW POSITION, WHEELS LOCKED, CALL LIGHT WITHIN REACH. WILL CONTINUE TO MONITOR.
[2016-12-30] MEDS ORDERED: LABETALOL 100 MG/20 ML VIAL IVP SCH (13:15)
--- NOTE | 2016-12-30 13:40 | NUR ---
ADMINISTERED LABETALOL IVP FOR BP 192/107. PROVIDED TEACHING ON MED AND SIDE EFFECTS. PT VERBALIZED UNDERSTANDING AND TOLERATED MED WELL. PT IS LYING IN BED RIGHT NOW. WILL REASSESS BP AND CONTINUE TO MONITOR.
--- NOTE | 2016-12-30 14:40 | NUR ---
REASSESS BP 140/74, HR 97. PT DENIES FEELING NAUSEOUS. LYING COMFORTABLY IN BED RIGHT NOW. ASKED IF PT NEEDED ANYTHING RIGHT NOW. PT STATED NO. MADE PT AWARE THAT SHE WILL NEED SOMEONE FROM HOME TO BRING HOME MED LYRICA SO SHE CAN TAKE MED TONIGHT. PT STATED HE DAUGHTER WILL BRING MED TONIGHT.
--- NOTE | 2016-12-30 15:31 | NUR ---
CM NOTE PER JUAN FROM [facility] ([phone]), PATIENT TO BE TRANSFERRED TO [facility] UNDER DR. VICENTE HOPE. AUTH# FOR [facility]: [id number] PATIENT ON WILL CALL W/ JASON. JUAN FUENTES MADE AWARE.
[2016-12-30 16:00] VITALS: BP 146/81
[2016-12-30] MEDS ORDERED: LOSA50TA1 PO (16:38)
--- NOTE | 2016-12-30 17:55 | NUR ---
CALLED [facility]. GAVE REPORT TO JONATHAN SPENCE RN AND TOLD KILN TENDER TIME FOR PT IN 1 HOUR.
--- NOTE | 2016-12-30 18:45 | NUR ---
GAVE PT D/C INSTRUCTIONS AND FORMS. PT AWARE OF TRANSFER TO [place]. INFORMED FAMILY MEMBER. PT SIGNED FORMS. D/C IV CATHETER FROM RIGHT AC. IV CATHETER TIP INTACT. APPLIED DRESSING AND PRESSURE TO SITE. NO BLEEDING NOTED. REMOVED TELE BOX AND ID BANDS. GAVE REPORT TO TRANSPORTERS. PT LEFT WITH ALL PERSONAL BELONGINGS. LEFT VIA GURNEY IN STABLE CONDITION.
[2016-12-30] MEDS ORDERED: METOPROLOL 25 MG TAB PO SCH (21:00)
[2016-12-31 10:17] LABS: FOLIC ACID 8.3 ng/mL (>3.0)
== END 2016-12-30 18:45 | disposition short-term general hospital (02) | DRG 199 ==
LOC: MED 16:03 → MTU 18:16 → OBSVTOIN 12-30 07:23
PROVIDERS: ADMIT Family Medicine; ATTEND Family Medicine
DX: I16.0 Hypertensive urgency (principal); N17.0 Acute kidney failure with tubular necrosis; I50.43 Acute on chronic combined systolic (congestive) and diastolic (congestive) heart failure; J18.9 Pneumonia, unspecified organism; D68.59 Other primary thrombophilia; E11.43 Type 2 diabetes mellitus with diabetic autonomic (poly)neuropathy; E11.51 Type 2 diabetes mellitus with diabetic peripheral angiopathy without gangrene; K31.84 Gastroparesis; E11.65 Type 2 diabetes mellitus with hyperglycemia; M94.0 Chondrocostal junction syndrome [Tietze]; I11.0 Hypertensive heart disease with heart failure; D64.9 Anemia, unspecified; I25.10 Atherosclerotic heart disease of native coronary artery without angina pectoris; M79.7 Fibromyalgia; F41.9 Anxiety disorder, unspecified; G47.00 Insomnia, unspecified; R31.9 Hematuria, unspecified; E78.2 Mixed hyperlipidemia; G43.909 Migraine, unspecified, not intractable, without status migrainosus; E02 Subclinical iodine-deficiency hypothyroidism; Z88.8 Allergy status to other drugs, medicaments and biological substances; Z79.84 Long term (current) use of oral hypoglycemic drugs; Z79.4 Long term (current) use of insulin; Z79.899 Other long term (current) drug therapy
CPT/HCPCS: 96365; 96375; 99285; G0378; 36415; 71010; 76770; 80048; 80053; 80305; 81001; 82150; 82607; 82728; 82746; 82948; 83036; 83540; 83690; 83735; 83880; 84100; 84439; 84443; 84484; 85025; 85045; 85610; 85730; 87040; 87081; 93005; 93976; J0360; J0696; J1815; J1940; J2270; J2405; J2550; J3490; J7030; J7060; J8597; Q0092

== ENCOUNTER 2017-01-19 22:59 | Emergency (ER) | payer MEDICAID ==
[~2017-01-19] VITALS: Ht 170.2 cm; Wt 73.5 kg
[~2017-01-19 22:59] MED LIST changes: +ACET-8386 PO; +APID SQ; +ATOR40TA PO; +CHLO25TA33 PO; -DOCU-299 PO; +FERR324T29 PO; +IMI25 PO; -LISI10TA11 PO; +LOSA50TA1 PO; +MEDR10TA PO; +METO-485 PO; -OMEP20TC10 PO; -ONDA8TAB1 PO; +PREG225C PO; +SITA100T8 PO; +ZOLP5TAB1 PO; +[UNRECOGNIZED DRUG - CODE] PO; +[UNRECOGNIZED DRUG - CODE] PO
[2017-01-19 23:07] VITALS: BP 162/96
[2017-01-19] MEDS ORDERED: LORazepam 0.5 MG TAB PO ONE (23:40)
[2017-01-20 00:06] LABS: BASOPHILS # (AUTO) 0.1 K/uL (0.00-0.22); BASOPHILS % (AUTO) 1.7 % (0.0-2.0); EOSINOPHILS # (AUTO) 0.2 K/uL (0-0.4); EOSINOPHILS % (AUTO) 2.4 % (0.0-4.0); HEMATOCRIT 26.7 % (36-48); HEMOGLOBIN 8.8 g/dL (12.0-16.0); LYMPHOCYTES # (AUTO) 1.2 K/uL (2.5-16.5); LYMPHOCYTES % (AUTO) 16.7 % (20.5-51.1); MEAN CORPUSCULAR HEMOGLOBIN 31 pg (27-31); MEAN CORPUSCULAR HGB CONC 33 g/dL (33-37); MEAN CORPUSCULAR VOLUME 93 fL (80-94); MONOCYTES # (AUTO) 0.7 K/uL (0.8-1.0); MONOCYTES % (AUTO) 9.8 % (1.7-9.3); NEUTROPHILS # (AUTO) 5.2 K/uL (1.8-7.7); NEUTROPHILS % (AUTO) 69.4 % (42.2-75.2); PLATELET COUNT (AUTO) 194 K/uL (140-450); RED BLOOD CELL COUNT(AUTO) 2.87 MIL/uL (4.20-5.40); RED CELL DISTRIBUTION WIDTH 12.3 % (11.6-13.7); WHITE BLOOD COUNT (AUTO) 7.4 K/uL (4.8-10.8)
[2017-01-20 00:20] LABS: ANION GAP 6.8 (8-16); CARBON DIOXIDE 28.5 mmol/L (21-32); CREATININE 1.3 mg/dL (0.6-1.3); POTASSIUM 4.3 mmol/L (3.5-5.1)
[2017-01-20 00:26] LABS: ALBUMIN 1.8 g/dL (3.4-5.0); TOTAL BILIRUBIN 0.1 mg/dL (0.0-1.0)
[2017-01-20] MEDS ORDERED: FUROSEMIDE 40 MG TAB PO ONE (01:55)
[2017-01-20 02:24] VITALS: BP 142/68
== END 2017-01-20 02:24 | disposition home or self-care (01) ==
LOC: MED 22:59
DX: J90 Pleural effusion, not elsewhere classified (principal); N04.9 Nephrotic syndrome with unspecified morphologic changes; E11.9 Type 2 diabetes mellitus without complications; I10 Essential (primary) hypertension; Z79.899 Other long term (current) drug therapy; Z88.8 Allergy status to other drugs, medicaments and biological substances
CPT/HCPCS: 36415; 71010; 80053; 82948; 83880; 84484; 85025; 93005; 99285; Q0092

== ENCOUNTER 2017-02-12 22:40 | Emergency (ER) | payer MEDICAID ==
[~2017-02-12] VITALS: Ht 170.2 cm; Wt 69.9 kg
[2017-02-12 22:41] VITALS: BP 166/90
[2017-02-12 22:52] VITALS: BP 166/90
--- NOTE | 2017-02-12 22:52 | NUR ---
TO LOBBY AMB, VS STABLE, EKG DONE NSR ERMD NOTED, A/W FOR BED
--- NOTE | 2017-02-12 23:30 | NUR ---
PATIENT CALLED FOR XRAY NO ANSWER
--- NOTE | 2017-02-12 23:40 | NUR ---
CALLED FOR SECOND TIME NO RESPONSE
--- NOTE | 2017-02-12 23:51 | NUR ---
CALLED FOR THE THIRD TIME NO RESPONSE, PATIENT LEFT WITHOUT BEING SEEN BY DR. SANDS. NO FURTHER CARE PROVIDED FOR PATIENT.
== END 2017-02-12 23:51 | disposition left against medical advice (07) ==
LOC: MED 22:40
DX: R07.89 Other chest pain (principal); Z53.21 Procedure and treatment not carried out due to patient leaving prior to being seen by health care provider

== ENCOUNTER 2017-02-13 11:40 | Emergency (ER) | payer MEDICAID ==
[~2017-02-13] VITALS: Ht 170.2 cm; Wt 64.9 kg
[2017-02-13 11:41] VITALS: BP 150/91
--- NOTE | 2017-02-13 11:54 | NUR ---
PT TRIAGED, AMBULATED TO ER LOBBY WAITING FOR ER BED. ERMD AWARE OF PATIENT STATUS.
[2017-02-13 12:59] LABS: BASOPHILS # (AUTO) 0.1 K/uL (0.00-0.22); BASOPHILS % (AUTO) 1.1 % (0.0-2.0); EOSINOPHILS % (AUTO) 0.7 % (0.0-4.0); HEMATOCRIT 31.4 % (36-48); HEMOGLOBIN 10.4 g/dL (12.0-16.0); LYMPHOCYTES # (AUTO) 0.7 K/uL (2.5-16.5); LYMPHOCYTES % (AUTO) 10.5 % (20.5-51.1); MEAN CORPUSCULAR HEMOGLOBIN 31 pg (27-31); MEAN CORPUSCULAR HGB CONC 33 g/dL (33-37); MEAN CORPUSCULAR VOLUME 92 fL (80-94); MONOCYTES # (AUTO) 0.3 K/uL (0.8-1.0); MONOCYTES % (AUTO) 4.4 % (1.7-9.3); NEUTROPHILS # (AUTO) 5.8 K/uL (1.8-7.7); NEUTROPHILS % (AUTO) 83.3 % (42.2-75.2); PLATELET COUNT (AUTO) 241 K/uL (140-450); RED CELL DISTRIBUTION WIDTH 12.4 % (11.6-13.7); WHITE BLOOD COUNT (AUTO) 6.9 K/uL (4.8-10.8)
[2017-02-13 13:07] LABS: ACETONE, SERUM NEGATIVE (NEGATIVE)
[2017-02-13 13:10] LABS: ANION GAP 11.1 (8-16); CHLORIDE 99 mmol/L (98-107); GFR ARICAN-AMERICAN 34 mL/min (>90); GLUCOSE 218 mg/dL (74-106); POTASSIUM 4.1 mmol/L (3.5-5.1); SODIUM SERUM 135 mmol/L (136-145); UREA NITROGEN, BLOOD 36 mg/dL (7-18)
[2017-02-13 13:16] LABS: ALBUMIN 2.2 g/dL (3.4-5.0); AMYLASE 29 U/L (25-115); ASPARTATE AMINOTRANSFERASE 21 U/L (15-37); LIPASE 90 U/L (73-393); TOTAL BILIRUBIN 0.2 mg/dL (0.0-1.0)
--- NOTE | 2017-02-13 14:40 | NUR ---
PATIENT AMBULATED TO ER BED 10 VIA WALKER
[2017-02-13] MEDS ORDERED: NACL 0.9% 1,000 ML IV ONE (15:05)
--- NOTE | 2017-02-13 15:06 | NUR ---
PT STATES VOMITING AND NAUSEA STARTED LAST EVENING AND HAS VOMITED 20 TIMES. STATES TAKING ZOFRAN AT HOME WITHOUT RELIEFE OF NAUSE. VS STABLE AT THIS TIME. MD AWARE. CONTINUE TO MONITOR.
--- NOTE | 2017-02-13 15:07 | NUR ---
ER MD DR. AUGUSTE EVALUATING PT AT BEDSIDE.
[2017-02-13] MEDS ORDERED: KETOROLAC 30 MG/ML VIAL IVP ONE (15:15)
[2017-02-13] MEDS ORDERED: METOCLOPRAMIDE 10 MG/2 ML INJ VIAL IVP ONE (15:15)
[2017-02-13 15:33] LABS: APPEARANCE,URINE CLEAR (CLEAR); BILIRUBIN,URINE NEGATIVE (NEGATIVE); BLOOD, URINE 1+ (NEGATIVE); COLOR,URINE YELLOW (YELLOW); LEUKOCYTE ESTERASE ,URINE NEGATIVE (NEGATIVE); NITRITE, URINE NEGATIVE (NEGATIVE); UGLUCOSE 2+ (NEGATIVE)
[2017-02-13 16:20] LABS: RBC,URINE 0-5 (RARE) /HPF (0-5); WBC,URINE 0-5 (RARE) /HPF (0-5)
--- NOTE | 2017-02-13 17:09 | NUR ---
PT MOVED TO BED 12.
[2017-02-13] MEDS ORDERED: NACL 0.9% 1,000 ML IV SCH (18:48)
[2017-02-13] MEDS ORDERED: KETOROLAC 15 MG/ML VIAL IVP PRN (18:50)
[2017-02-13] MEDS ORDERED: METOCLOPRAMIDE 10 MG/2 ML INJ VIAL IVP PRN (18:50)
[2017-02-13] MEDS ORDERED: ACETAMINOPHEN 325 MG TAB PO PRN (18:50)
--- NOTE | 2017-02-13 18:58 | NUR ---
IV removed, catheter intact and site benign. Applied folded 4x4 gauze and tape to stop bleeding. PATIENT TOLERATED PROCEDURE WELL.
[2017-02-13 19:00] VITALS: BP 210/99
--- NOTE | 2017-02-13 19:00 | NUR ---
Patient does not wish to proceed with medical care recommended by Dr. Robertson. Patient states " I feel better. I have family coming and little ones at home. I really can't stay". Patient given information related to possible complications, up to and including , which could occur as a result of leaving hospital at this time. Patient verbalizes understanding of risks involved leaving against medical advice. Patient has signed AMA form.
[2017-02-13] MEDS ORDERED: DOCUSATE SODIUM 100 MG GELCAP PO SCH (21:00)
== END 2017-02-13 19:00 | disposition left against medical advice (07) ==
LOC: MED 11:40
DX: N17.9 Acute kidney failure, unspecified (principal); E86.0 Dehydration; E11.9 Type 2 diabetes mellitus without complications; I10 Essential (primary) hypertension; Z88.8 Allergy status to other drugs, medicaments and biological substances; M79.7 Fibromyalgia
CPT/HCPCS: 36415; 80053; 81001; 82009; 82150; 83605; 83690; 84702; 85025; 87040; 87804; 93005; 96361; 96374; 96375; 99285; J1885; J2765; J7030

== ENCOUNTER 2019-02-22 12:34 | Inpatient (IN) | payer OTHER, MEDICAID ==
[~2019-02-22] VITALS: Ht 167.6 cm; Wt 72.6 kg
[~2019-02-22 12:34] MED LIST changes: -[UNRECOGNIZED DRUG - CODE] PO
[2019-02-22 12:46] VITALS: BP 178/94
--- NOTE | 2019-02-22 13:01 | NUR ---
pt missed hd for a day started to feel sob accompanied by chest pain at 8/10.pt awake ,alert , afebrile come in BIBA .sce ,coarse bs bilateral lung rubin. enlarge abdomen .LE plus 1 pitting edema. pmhx HD pt ,dm
--- NOTE | 2019-02-22 13:06 | NUR ---
XRAY AT BEDSIDE
--- NOTE | 2019-02-22 13:08 | NUR ---
PLATE FINISHER AT BEDSIDE
--- NOTE | 2019-02-22 13:08 | NUR ---
DR ARREOLA EVALUATING PT AT BEDSIDE
[2019-02-22 13:32] LABS: BASOPHILS % (AUTO) 0.9 % (0.0-2.0); EOSINOPHILS % (AUTO) 1.6 % (0.0-4.0); HEMATOCRIT 31.9 % (36-48); HEMOGLOBIN 10.3 g/dL (12.0-16.0); LYMPHOCYTES # (AUTO) 0.3 K/uL (2.5-16.5); LYMPHOCYTES % (AUTO) 10.8 % (20.5-51.1); MEAN CORPUSCULAR HEMOGLOBIN 31 pg (27-31); MEAN CORPUSCULAR HGB CONC 32 g/dL (33-37); MEAN CORPUSCULAR VOLUME 94.6 fL (80-94); MONOCYTES # (AUTO) 0.4 K/uL (0.8-1.0); MONOCYTES % (AUTO) 11.3 % (1.7-9.3); NEUTROPHILS # (AUTO) 2.4 K/uL (1.8-7.7); NEUTROPHILS % (AUTO) 75.4 % (42.2-75.2); PLATELET COUNT (AUTO) 196 K/uL (140-450); RED BLOOD CELL COUNT(AUTO) 3.38 MIL/uL (4.20-5.40); WHITE BLOOD COUNT (AUTO) 3.1 K/uL (4.8-10.8)
[2019-02-22] MEDS ORDERED: LEVOFLOXACIN 750 MG/D5W PREMIX 150 ML IV ONE (14:00)
[2019-02-22 14:18] LABS: ALBUMIN 2.6 g/dL (3.4-5.0); CARBON DIOXIDE 30.1 mmol/L (21-32); TOTAL BILIRUBIN 0.6 mg/dL (0.0-1.0)
[2019-02-22] MEDS ORDERED: ONDANSETRON 4 MG/2 ML VIAL IVP ONE (14:20)
[2019-02-22] MEDS ORDERED: hydrALAZINE 20 MG/ML VIAL IVP ONE (14:35)
--- NOTE | 2019-02-22 15:00 | NUR ---
LABS AT BEDSIDE.
[2019-02-22 15:18] LABS: ANION GAP 12.4 (8-16); POTASSIUM 6.5 mmol/L (3.5-5.1)
[2019-02-22] MEDS ORDERED: NACL 0.9% 1,000 ML IV SCH (15:26)
[2019-02-22] MEDS ORDERED: DOCUSATE SODIUM 100 MG GELCAP PO PRN (15:30)
[2019-02-22] MEDS ORDERED: ACETAMINOPHEN 325 MG TAB PO PRN (15:30)
[2019-02-22] MEDS ORDERED: DEXTROSE 50% 50 ML SYR IVP ONE (15:30)
[2019-02-22] MEDS ORDERED: INSULIN REGULAR, HUMAN 100 UNIT/ML VIAL SUBQ ONE (15:30)
[2019-02-22] MEDS ORDERED: HYDROcodone/APAP 5/325 MG 1 TAB TAB PO PRN (15:30)
[2019-02-22] MEDS ORDERED: ALBUTEROL 0.083% 2.5 MG/3 ML NEBU INH ONE (15:30)
[2019-02-22] MEDS ORDERED: SODIUM POLYSTYRENE 15 GM/60 ML UDBTL PO ONE (15:30)
--- NOTE | 2019-02-22 15:33 | NUR ---
DR. DAVIS AT BEDSIDE FOR ADMISSION HX AND PHYSICAL NO SOB NOTED [employer] HARNESS RIGGER TO ATTEMPT [facility] THERAPY AND RESPIRATORY DRUG AT A LATER TIME
--- NOTE | 2019-02-22 15:45 | NUR ---
[facility] THERAPY AND RESPIRATORY DRUGS GIVEN ORDERED FOR HYPERKALEMIA
[2019-02-22 16:10] VITALS: BP 147/72
--- NOTE | 2019-02-22 16:10 | NUR ---
PT ARRIVED WITH ED NURSE AND SAFELY TRANSFERRED TO BED. ABLE TO MAKE NEEDS KNOWN. SKIN WARM AND DRY TO TOUCH. RESPIRATIONS EVEN AND UNLABORED WITH NO SOB OR RESPIRATORY DISTRESS. ON NC 2L AND TOLERATING WELL. MRSA SWAB COLLECTED AND SENT TO LAB. PT ATTACHED TO TELE MONITOR. IV SITE LEFT AC 20G IS CLEAN, DRY, AND INTACT. VITAL SIGNS UPON ADMISSION: 147/72 BP, 98% SPO2 ON 2L NC, 90HR, 98.0 TEMP. SAFETY MEASURES IN PLACE. WILL CONTINUE TO MONITOR.
--- NOTE | 2019-02-22 16:10 | NUR ---
Patient will be admitted to care of dr horton. Admited to tele. Will go to room 117. Belongings list completed. Report to roman quiroz.
[2019-02-22 16:47] LABS: PROTHROMBIN TIME 11.8 secs (10.8-13.4)
[2019-02-22] MEDS ORDERED: ALBUTEROL SULFATE/IPRATROPIU 3 ML SOL IH PRN (17:40)
[2019-02-22 17:59] LABS: MAGNESIUM 2.2 mg/dL (1.8-2.4); PHOSPHORUS 5.4 mg/dL (2.5-4.9); THYROID STIMULATING HORMONE 18.83 uIU/mL (0.34-3.74)
[2019-02-22] MEDS ORDERED: DEXTROSE 50% 50 ML SYR IVP PRN (18:00)
[2019-02-22] MEDS: PIPERACILLIN/TAZOBACTAM 2.25 GM in DEXTROSE 5% 50 ML IV SCH (18:38)
--- NOTE | 2019-02-22 18:38 | NUR ---
ADMINISTERED MEDICATION PRESCRIBED PER MD ORDER. PT TOLERATED WELL. MEDICATION EDUCATION PERFORMED. PT VERBALIZED UNDERSTANDING.
--- NOTE | 2019-02-22 19:15 | NUR ---
ENDORSED TO NIGHTSHIFT NURSE. PT RESTING IN BED. ABLE TO MAKE NEEDS KNOWN. RESPIRATIONS EVEN AND UNLABORED WITH NO SOB OR RESPIRATORY DISTRESS. SKIN WARM AND DRY TO TOUCH. SAFETY MEASURES IN PLACE. PT IS STABLE.
--- NOTE | 2019-02-22 19:16 | NUR ---
RECEIVED BEDSIDE REPORT FROM DAY RN. PT IS AWAKE LAYING IN BED. AAOX4. ON NC 2L O2 RESPIRATIONS ARE EQUAL AND UNLABORED. LUNG SOUNDS ARE CLEAR DIMINISHED LORENZO AT BASE. PTS ABDOMEN IS DISTENDED US ABDOMEN DONE, BOWEL SOUNDS ARE ACTIVE X4. PT WITH OPEN BLISTER ON LORENZO BACK OF HEEL AND R TOE. WILL OBTAIN PICTURES. HAS AV SHUNT ON JOHANN. IV ON LAC20G TKO. CURRENTLY ZOSYN INFUSING. PT HAS LORENZO LOWER PITTING EDEMA. R KNEE IS WARM TO TOUCH,RED AND SWOLLEN PER PT SHE FELL LAST MONTH AND WENT TO [place] WAS D/C NO FX. POC DISCUSSED WITH PT. CALL LIGHT IS WITHIN REACH. WILL CONTINUE TO MONITOR.
--- NOTE | 2019-02-22 19:40 | NUR ---
CONSENT FOR HD STAT OBTAINED AND IN CHART. HD NURSE IS AT BEDSIDE. PT STATES LAST HD WAS WEDNESDAY NORMALLY GETS HD , WEDNESDAY, AND WEDNESDAY. TOOK PICTURES OF BLISTER ON FEET AND CLEAN WITH NS. APPLIED DRESSING.
[2019-02-22] MEDS: ALBUTEROL SULFATE/IPRATROPIU 3 ML SOL IH SCH (19:45)
[2019-02-22 20:00] VITALS: BP 123/63
[2019-02-22] MEDS: BLOOD GLUCOSE MONITORING 1 DEV DEV FS SCH (20:29)
[2019-02-22] MEDS: ZOLPIDEM 5 MG TAB PO SCH (20:39)
[2019-02-22] MEDS: PREGABALIN 50 MG CAP PO SCH (20:40)
[2019-02-22] MEDS: PREGABALIN 25 MG CAP PO SCH (20:40)
[2019-02-22] MEDS: ATORVASTATIN 20 MG TAB PO SCH (20:40)
--- NOTE | 2019-02-22 20:40 | NUR ---
VSS. PT CURRENTLY GETTING HD. DIALYSIS NURSE IS AT BEDSIDE. RAKESH MEDICATIONS GIVEN. BLOOD SUGAR 106 NO COVERAGE NEEDED. PT TOLERATED WELL. NO S/S OF DISTRESS. CALL LIGHT IS WITHIN REACH.
[2019-02-22] MEDS ORDERED: LOSARTAN 50 MG TAB PO SCH (21:00)
[2019-02-22] MEDS ORDERED: PREGABALIN 25 MG CAP PO SCH (21:00)
--- NOTE | 2019-02-22 23:10 | NUR ---
HD COMPLETE. 3.5 OUTPUT. POST VS: 171/80. SAFETY MEASURES ARE IN PLACE. CALL LIGHT IS WITHIN REACH. WILL CONTINUE TO MONITOR.
[2019-02-23] VITALS: BP 128/63
[2019-02-23] MEDS: PIPERACILLIN/TAZOBACTAM 2.25 GM in DEXTROSE 5% 50 ML IV SCH ×4 (00:18→18:54)
--- NOTE | 2019-02-23 00:20 | NUR ---
VSS: 128/63 HR 95. ALL NEEDS MET AT THIS TIME. SAFETY MEASURES ARE IN PLACE.
--- NOTE | 2019-02-23 02:28 | NUR ---
PATIENT IS SLEEPING COMFORTABLY IN BED WITH EYES CLOSED. CHEST RISE AND FALL. ALL NEEDS MET AT THIS TIME. CALL LIGHT IS WITHIN REACH.
[2019-02-23 04:00] VITALS: BP 158/80
--- NOTE | 2019-02-23 04:00 | NUR ---
VITAL SIGNS ARE WITHIN NORMAL LIMITS. ALL NEEDS MET AT THIS TIME. CALL LIGHT IS WITHIN REACH.
--- NOTE | 2019-02-23 05:32 | NUR ---
ZOSYN NOW INFUSING PER ORDERS. INFLUENZA A&B COLLECTED AND SENT TO LAB. BG 91 NO COVERAGE NEEDED. EDUCATED PT ON NEED FOR SPUTUM CX VERBALIZED UNDERSTANDING. SPECIMEN CUP AT BEDSIDE. SAFETY MEASURES ARE IN PLACE. CALL LIGHT IS WITHIN REACH.
[2019-02-23] MEDS: BLOOD GLUCOSE MONITORING 1 DEV DEV FS SCH ×4 (05:56→20:28)
[2019-02-23 06:11] LABS: T4 (THYROXINE) 5.8 ug/dL (4.5-12.0)
[2019-02-23 06:52] LABS: EOSINOPHILS # (AUTO) 0.1 K/uL (0-0.4); EOSINOPHILS % (AUTO) 1.9 % (0.0-4.0); HEMATOCRIT 29.2 % (36-48); HEMOGLOBIN 9.4 g/dL (12.0-16.0); LYMPHOCYTES # (AUTO) 0.3 K/uL (2.5-16.5); LYMPHOCYTES % (AUTO) 8.3 % (20.5-51.1); MEAN CORPUSCULAR HEMOGLOBIN 31 pg (27-31); MEAN CORPUSCULAR HGB CONC 32 g/dL (33-37); MONOCYTES # (AUTO) 0.5 K/uL (0.8-1.0); MONOCYTES % (AUTO) 13.9 % (1.7-9.3); NEUTROPHILS # (AUTO) 2.4 K/uL (1.8-7.7); NEUTROPHILS % (AUTO) 74.9 % (42.2-75.2); PLATELET COUNT (AUTO) 171 K/uL (140-450); RED BLOOD CELL COUNT(AUTO) 3.07 MIL/uL (4.20-5.40); RED CELL DISTRIBUTION WIDTH 17.5 % (11.6-13.7); WHITE BLOOD COUNT (AUTO) 3.3 K/uL (4.8-10.8)
[2019-02-23 07:10] LABS: MAGNESIUM 1.6 mg/dL (1.8-2.4); PHOSPHORUS 3.7 mg/dL (2.5-4.9)
[2019-02-23] MEDS: ALBUTEROL SULFATE/IPRATROPIU 3 ML SOL IH SCH ×3 (07:20→11:53)
--- NOTE | 2019-02-23 07:25 | NUR ---
GAVE BEDSIDE REPORT TO DAY RN. PT ENDORSED IN STABLE CONDITION.
--- NOTE | 2019-02-23 07:26 | NUR ---
RECEIVED REPORT FROM MINE FOREMAN NURSE DENVER FOR CONTINUITY OF CARE. PT IN STABLE CONDITION. RESPIRATIONS EVEN AND UNLABORED, ROOM AIR. IV INTACT AND PATENT. SAFETY MEASURES IN PLACE. BED IN LOW POSITION. CALL LIGHT AT BEDSIDE. WILL CONTINUE TO MONITOR.
--- NOTE | 2019-02-23 07:45 | NUR ---
PODIATRY ASSESSING PT AT BEDSIDE. PT IN STABLE CONDITION.
[2019-02-23 08:00] VITALS: BP 117/64
[2019-02-23 08:18] LABS: CREATININE 3.5 mg/dL (0.6-1.3); POTASSIUM 4.4 mmol/L (3.5-5.1)
[2019-02-23 08:21] LABS: CHOL/HDL RATIO 2.6 (1-4.5)
[2019-02-23 08:32] LABS: ANION GAP 10.5 (8-16); CARBON DIOXIDE 30.9 mmol/L (21-32)
[2019-02-23] MEDS: PREGABALIN 25 MG CAP PO SCH ×2 (08:55→20:35)
[2019-02-23] MEDS: LOSARTAN 50 MG TAB PO SCH ×2 (08:55→20:28)
[2019-02-23] MEDS: PREGABALIN 50 MG CAP PO SCH ×2 (08:56→20:34)
[2019-02-23] MEDS ORDERED: FERROUS SULFATE 325 MG TABEC PO SCH (09:00)
--- NOTE | 2019-02-23 09:06 | NUR ---
GAVE ORDERED DUE MEDICATIONS AT THIS TIME. PT TOLERATED WELL.
[2019-02-23] MEDS ORDERED: MAG SULF 2000 MG/WATER PREMIX 50 ML IV SCH (09:15)
--- NOTE | 2019-02-23 09:35 | NUR ---
CONSENT SIGNED FOR DEBRIDEMENT RIGHT GREAT TOE. PODIATRY AT BEDSIDE. PT IN STABLE CONDITION.
[2019-02-23] MEDS: LEVOTHYROXINE 0.112 MG TAB PO SCH (10:21)
--- NOTE | 2019-02-23 11:23 | NUR ---
Day Care Supervisor Note: Basic Screen: Yes High Risk DC Screen [place]: DAREK Tapia Relationship: Pre-Admission Living Arrangements: Lives with Other Prior ADL Independent Current Home Health Name/Tel: N/A Current DME/02 Name/Tel: [facility] Current Hospice Name/Tel: N/A Current Dialysis Name/Tel: [facility] - /WED//SAT Healthcare Decision Maker: Patient Advance Directive No - REFUSED Physician Orders for Life Sustaining Treatment Form No Patient/Family Have Educational Needs No Information Taught: Advance Directive Person Taught: Patient Teaching Tools: Verbal Factors Affecting Learning: None Participation Level: Refused Evaluation: Verbalizes Understanding Needs Additional Education: No Discipline: Case Mgt/Social Svcs Tentative Discharge Plan/Destination: No Needs Identified Will require assistance post discharge: No Referred to Reagent Tender Helper: No Tentative Discharge Plan Summary: Patient is a 64-year-old female admitted for hyponatremia. Patient has PMHX of DM, HTN, neuropathy, CHF, and ESRD. Patient was admitted from home with mother and daughter. SW met with patient at bed side to verify demographics. Pateint reports no history of mental health and no history of substance abuse. SW provided education regarding advanced directive but patient refused. Patient states that she is ambulatory with walker and is able to complete activities of daily living independently. Patient stated that she does has a caregiver through [facility] that assists with daily chores when she needs help. Patient reports that caregiver comes in every other day. Patient's tentative discharge plan is to return home. No further needs identified. Signature: LIBIA Rice Date: Feb 23, 2019 Time: 11:23 Addendum: 02/23/19 at 1326 by Brandon Melo Error in previous note: Patient's emergency contact: Daughter - Jared Begum - [phone]. Patient is 49-year-old female admitted for pneumonia and hyperkalemia.
--- NOTE | 2019-02-23 11:45 | NUR ---
PT SLEEP AT THIS TIME. RESPIRATIONS EVEN AND UNLABORED. BED IN LOW POSITION. CALL LIGHT ON. WILL CONTINUE TO MONITOR.
--- NOTE | 2019-02-23 13:01 | NUR ---
PT EATING LUNCH AT THIS TIME. PT IN STABLE CONDITION.
--- NOTE | 2019-02-23 13:38 | NUR ---
DC PLANNIN YRS OLD FEMALE PATIENT WAS ADMITTED FROM HOME WITH A DX OF PNA , HYPERKALEMIA AND ESRD . PT HAS A HX OF ESRD, CHF, HTN . CXR SHOWED BILATERAL LOWER LOBE AND RT MIDDLE LOBE PNA ,MODERATE RIGHT PLEURAL EFFUSION. BLOOD AND URINE CULTURES PENDING, STARTED ON IV ZOSYN, CONTINUED HOME MEDS ,RT PROTOCOL NEPHRO AND PULMO CONSULT WITH DR PACE AND DR DEAN. DC PLAN TO GO HOME WHEN STABLE. CM TO FOLLOW Addendum: 02/23/19 at 1447 by Aleyda Mccann I provided patient with education on [employer], [email or web address] for community resources. Addendum: 02/24/19 at 0918 by Allyson Leong DC PLANNING SEEN BY PULMO DR DEAN, ORDERED THORACENTESIS AND PARACENTESIS FOR FLUID REMOVAL, NEPHRO DR PACE ORDERED DRY UF TREATMENT TO OPTIMIZE HER FLUID STATUS ,EPOGEN 3 TIMES A WEEK FOR ANEMIA. AND PODIATRY DR VILLANUEVA PERFORMED EXCISIONAL DEBRIDEMENT OF DORSAL HALLUS ULCERATION TO RIGHT FOOT AND DRESSING CHANGE DAILY. DC PLAN TO GO HOME WHEN STABLE .CM TO FOLLOW Addendum: 02/26/19 at 1227 by Janel Bryant CM RECEIVED AN ORDER FOR HOME HEALTH FOR HOME SAFETY EVAL. MET WITH THE PATIENT AT THE BEDSIDE TO DISCUSS DC PLANNING AND IS IN AGREEMENT. PROVIDED HER WITH IMM LETTER AND CHOICE OF VENDOR FORM AND HH BROCHURES. SHE STATED SHE WILL LOOK AT IT AND WILL INFORM ME ONCE ONCE DECISION HAVE BEEN MADE. Addendum: 02/26/19 at 1237 by Janel Bryant CM RECEIVED AN ORDER FOR HOME O2. ORDER FOR ABG IN PLACE. CONTACTED [facility] AT [phone], ABLE TO SPEAK TO [employer] [facility] REGARDING DC PLAN. SHE STATED NO NEED FOR AUTH, PRIMARY IS MEDICARE. CONTACTED BRIAN REDMAN AT [phone] REGARDING REFERRAL. HE STATED TO GO AHEAD AND FAX THE ORDER, ABG AND SATS TO [phone]. Addendum: 02/26/19 at 1443 by Janel Bryant CM RECEIVED THE CHOICE OF VENDOR FORM FROM THE PATIENT WITH HER TOP 3 CHOICES [facility], [facility] AND [facility]. REFERRAL SENT. PER GINGER REDMAN, THEY WILL DELIVER THE OXYGEN TODAY. PATIENT MADE AWARE AT [phone]. PER [facility], THEY WILL RUN THE ELIGIBILITY AND WILL GIVE ME A CALL BACK. Addendum: 02/26/19 at 4982 by Janel Bryant CM PER [facility]ON[facility] OF [facility], THEY ARE ABLE TO ACCEPT THE PATIENT AND WILL HAVE THE NURSE SEE THE PATIENT TOMORROW. PATIENT MADE AWARE.
--- NOTE | 2019-02-23 15:58 | NUR ---
PT TALKING TO FRIENDS AT BEDSIDE. RESPIRATIONS EVEN AND UNLABORED. BED IN LOW POSITION. CALL LIGHT AT BEDSIDE.
[2019-02-23 16:00] VITALS: BP 127/71
[2019-02-23] MEDS: SUMAtriptan 25 MG TAB PO PRN (16:02)
--- NOTE | 2019-02-23 16:15 | NUR ---
JAIME CARCAMO AT BEDSIDE. PT IN STABLE CONDITION.
--- NOTE | 2019-02-23 17:10 | NUR ---
CALLED [facility] FOR DIALYSIS. ALL QUESTIONS ANSWERED AT THIS TIME.
[2019-02-23 18:55] LABS: PROTHROMBIN TIME 11.8 secs (10.8-13.4)
--- NOTE | 2019-02-23 19:29 | NUR ---
GAVE REPORT TO FORENSIC LOCKSMITH NURSE FOR CONTINUITY OF CARE. PT IN STABLE CONDITION.
--- NOTE | 2019-02-23 19:30 | NUR ---
RECEIVED BEDSIDE REPORT FROM DAY RN. PT IS AWAKE LAYING IN BED. AAOX4. ON NC 2L O2 RESPIRATIONS ARE EQUAL AND UNLABORED. LUNG SOUNDS ARE CLEAR DIMINISHED LORENZO AT BASE. PTS ABDOMEN IS DISTENDED US ABDOMEN DONE, BOWEL SOUNDS ARE ACTIVE X4. PT WITH OPEN BLISTER ON LORENZO BACK OF HEEL AND R TOE. HAD I&D ON R BUG TOE TODAY DRESSING IS C/D/I. HAS AV SHUNT ON JOHANN. IV ON LAC20G TKO. CURRENTLY ZOSYN INFUSING. PT HAS LORENZO LOWER PITTING EDEMA. R KNEE IS WARM TO TOUCH,RED AND SWOLLEN PER PT SHE FELL LAST MONTH AND WENT TO [place] WAS D/C NO FX. POC DISCUSSED WITH PT. CALL LIGHT IS WITHIN REACH. WILL CONTINUE TO MONITOR.
[2019-02-23] MEDS: ONDANSETRON 4 MG/2 ML VIAL IM/IVP PRN (19:48)
--- NOTE | 2019-02-23 19:48 | NUR ---
ADMINISTERED PRN ZOFRAN FOR C/C NAUSEA. PT TOLERATED WELL. HD NURSE AT BEDSIDE. WILL BEGIN DIALYSIS. ALL SAFETY MEASURES ARE IN PLACE.
[2019-02-23 20:00] VITALS: BP 159/65
[2019-02-23] MEDS: ATORVASTATIN 20 MG TAB PO SCH (20:35)
[2019-02-23] MEDS: ZOLPIDEM 5 MG TAB PO SCH (20:35)
--- NOTE | 2019-02-23 20:35 | NUR ---
VSS. PT CURRENT GETTING HD. HELD COZAAR AND HEPARIN. OTHER MEDS GIVEN PT TOLERATED WELL. ALL NEED MET. WILL CONTINUE TO MONITOR.
--- NOTE | 2019-02-23 23:00 | NUR ---
HD COMPLETE REMOVED 3L. VSS. SAFETY MEASURES ARE IN PLACE.
[2019-02-24] VITALS: BP 152/77
[2019-02-24] MEDS: PIPERACILLIN/TAZOBACTAM 2.25 GM in DEXTROSE 5% 50 ML IV SCH ×4 (00:07→17:06)
--- NOTE | 2019-02-24 00:15 | NUR ---
OBTAINED CONSENT FOR PARACENTESIS, THORACENTESIS AND AUTHORIZATION OF MEDICAL RECORDS. AUTHORIZATION OF MEDICAL RECORDS FAXED TO [facility] AT [phone].
--- NOTE | 2019-02-24 01:51 | NUR ---
PATIENT IS SLEEPING COMFORTABLY WITH EYES CLOSED. NO S/S OF DISTRESS. ALL SAFETY MEASURES ARE IN PLACE. WILL CONTINUE TO MONITOR
[2019-02-24 04:00] VITALS: BP 149/75
--- NOTE | 2019-02-24 04:00 | NUR ---
VSS, GAVE CUP OF ICE PER REQUEST. ALL NEEDS MET AT THIS TIME. WILL CONTINUE TO MONITOR.
[2019-02-24] MEDS: LEVOTHYROXINE 0.112 MG TAB PO SCH (05:56)
[2019-02-24 06:07] LABS: HEPATITIS A ANTIBODY IGM Negative (Negative); HEPATITIS B CORE AB TOTAL Negative (Negative); HEPATITIS B SURFACE ANTIBODY Reactive (.); HEPATITIS B SURFACE ANTIGEN Negative (Negative)
[2019-02-24] MEDS: INSULIN LISPRO SLIDING SCALE 100 UNITS/ML VIAL SUBQ PRN ×3 (06:31→17:06)
--- NOTE | 2019-02-24 06:31 | NUR ---
BLOOD SUGAR IS 197 GAVE COVERAGE PER SLIDING SCALE. PT TOLERATED WELL. GAVE A LITTLE BIT OF ICE CHIPS PER REQUEST REMINDED PT OF FLUID RESTRICTION, VERBALIZE UNDERSTANDING. WILL CONTINUE TO MONITOR.
[2019-02-24] MEDS: BLOOD GLUCOSE MONITORING 1 DEV DEV FS SCH ×4 (06:37→21:20)
--- NOTE | 2019-02-24 07:15 | NUR ---
RECEIVED REPORT FROM REST ROOM ATTENDANT NURSE. PATIENT LYING DOWN IN BED WATCHING TV. NO DISTRESS NOTED. DENIES ANY PAIN. RESPIRATIONS EVEN, UNLABORED, ON ROOM AIR. AAOX4, CALM, COOPERATIVE, SKIN COLOR APPROPRIATE TO ETHNICITY, WARM TO TOUCH. RIGHT TOE ULCERATION S/P DEBRIDEMENT BY NUTRITION REPRESENTATIVE YESTERDAY, DRY DRY AND INTACT. B/L HEELS HEALED SCAB NOTED, HEEL PROTECTORS ON. IV SITE INTACT, PATENT, AND ON SALINE LOCK. REVIEWED PLAN OF CARE WITH PATIENT. PATIENT VERBALIZED UNDERSTANDING. SAFETY MEASURES IN PLACE, CALL LIGHT WITHIN REACH. WILL CONTINUE TO MONITOR.
[2019-02-24 07:20] LABS: PROTHROMBIN TIME 12.1 secs (10.8-13.4)
[2019-02-24] MEDS: ALBUTEROL SULFATE/IPRATROPIU 3 ML SOL IH SCH ×3 (07:33→19:40)
--- NOTE | 2019-02-24 07:33 | NUR ---
SATURATION 99% ON SUPPLEMENTAL OXYGEN AT 3 LPM VIA NC POST HHN THERAPY TOITRATED FIO2 TO 2 LPM EDUAR/RN NOTIFIED
[2019-02-24 08:00] VITALS: BP 124/77
[2019-02-24] MEDS: PREGABALIN 25 MG CAP PO SCH ×2 (09:29→21:21)
[2019-02-24] MEDS: VIT-B COMP/VIT-C/FOLIC ACID 1 TAB PO SCH (09:29)
[2019-02-24] MEDS: PREGABALIN 50 MG CAP PO SCH ×2 (09:29→21:20)
[2019-02-24] MEDS: SUMAtriptan 25 MG TAB PO PRN ×2 (09:30→21:28)
[2019-02-24] MEDS: LOSARTAN 50 MG TAB PO SCH ×2 (09:30→21:22)
[2019-02-24] MEDS: MORPHINE SULFATE 2 MG/ML SYR IVP PRN (09:31)
--- NOTE | 2019-02-24 09:46 | NUR ---
ASSISTED PATIENT TO BEDSIDE COMMODE. SCHEDULED MEDICATIONS DUE GIVEN. WILL CONTINUE TO MONITOR.
[2019-02-24 09:55] LABS: ANTI-NUCLEAR ANTIBODY,DIRECT Positive (Negative)
--- NOTE | 2019-02-24 10:24 | NUR ---
WOUND CARE CONSULT NOT DONE, PT. IS SEEN BY PODIATRY IN HOUSE.
[2019-02-24 10:28] LABS: APPEARANCE,URINE CLEAR (CLEAR); BILIRUBIN,URINE NEGATIVE (NEGATIVE); BLOOD, URINE NEGATIVE (NEGATIVE); COLOR,URINE YELLOW (YELLOW); LEUKOCYTE ESTERASE ,URINE NEGATIVE (NEGATIVE); NITRITE, URINE NEGATIVE (NEGATIVE); UGLUCOSE NEGATIVE (NEGATIVE)
[2019-02-24 10:34] LABS: BARBITURATE, URINE NEG. ng/ml (NEG <=200); BENZODIAZEPINE, URINE NEG. ng/mL (NEG <=200); CANNABINOID, URINE NEG. ng/mL (NEG <=50); COCAINE, URINE NEG. ng/mL (NEG <=300); OPIATE, URINE NEG. ng/mL (NEG <=2000); PHENCYCLIDINE SCREEN,URINE NEG. ng/mL (NEG <=25)
[2019-02-24 10:41] LABS: RBC,URINE 0-5 /HPF (0-5); WBC,URINE 0-5 /HPF (0-5)
--- NOTE | 2019-02-24 11:00 | NUR ---
FOLLOWED-UP WITH ULTRASOUND REGARDING PARACENTESIS, ULTRASOUND TO FOLLOW-UP AND CALL ME BACK
[2019-02-24 12:00] VITALS: BP 160/86
[2019-02-24 12:01] LABS: BASOPHILS % (AUTO) 0.7 % (0.0-2.0); EOSINOPHILS # (AUTO) 0.1 K/uL (0-0.4); EOSINOPHILS % (AUTO) 1.3 % (0.0-4.0); HEMATOCRIT 31.7 % (36-48); HEMOGLOBIN 10.1 g/dL (12.0-16.0); LYMPHOCYTES # (AUTO) 0.3 K/uL (2.5-16.5); LYMPHOCYTES % (AUTO) 6.1 % (20.5-51.1); MEAN CORPUSCULAR HEMOGLOBIN 31 pg (27-31); MEAN CORPUSCULAR HGB CONC 32 g/dL (33-37); MEAN CORPUSCULAR VOLUME 96.2 fL (80-94); MONOCYTES # (AUTO) 0.4 K/uL (0.8-1.0); MONOCYTES % (AUTO) 9.5 % (1.7-9.3); NEUTROPHILS # (AUTO) 3.8 K/uL (1.8-7.7); NEUTROPHILS % (AUTO) 82.4 % (42.2-75.2); PLATELET COUNT (AUTO) 199 K/uL (140-450); RED CELL DISTRIBUTION WIDTH 17.9 % (11.6-13.7); WHITE BLOOD COUNT (AUTO) 4.7 K/uL (4.8-10.8)
[2019-02-24 12:30] LABS: MAGNESIUM 1.9 mg/dL (1.8-2.4); PHOSPHORUS 3.4 mg/dL (2.5-4.9)
[2019-02-24 12:42] LABS: ANION GAP 12.3 (8-16); CARBON DIOXIDE 30.4 mmol/L (21-32); CREATININE 3.2 mg/dL (0.6-1.3); POTASSIUM 4.7 mmol/L (3.5-5.1)
--- NOTE | 2019-02-24 12:47 | NUR ---
PATIENT SITTING DOWN IN BED WITH LUNCH TRAY IN FRONT. NO DISTRESS NOTED. SCHEDULED MEDICATIONS DUE GIVEN. WILL CONTINUE TO MONITOR.
--- NOTE | 2019-02-24 15:59 | NUR ---
PATIENT SITTING IN BED TALKING WITH FAMILY MEMBERS AT BEDSIDE. NO DISTRESS NOTED. THORACENTESIS AND PARACENTESIS COMPLETED AT THIS TIME. WILL CONTINUE TO MONITOR.
[2019-02-24 16:00] VITALS: BP 147/72
--- NOTE | 2019-02-24 16:00 | NUR ---
THORACENTESIS COMPLETED, 1150 ML OUT. PARACENTESIS COMPLETED, 4950 ML OUT. PATIENT IN STABLE CONDITION, TALKING TO FAMILY MEMBERS AT BEDSIDE. WILL CONTINUE TO MONITOR.
--- NOTE | 2019-02-24 17:07 | NUR ---
PATIENT SITTING DOWN IN BED. SCHEDULED MEDICATIONS DUE GIVEN. WILL CONTINUE TO MONITOR.
--- NOTE | 2019-02-24 19:22 | NUR ---
GAVE REPORT TO HARNESS MAKER NURSE FOR CONTINUITY OF CARE. PATIENT IN STABLE CONDITION.
--- NOTE | 2019-02-24 19:30 | NUR ---
RECEIVED FROM AM RN IN BED SITTING UP AND TALKING WITH RESIDENT MD RE: CARE. CALL LIGHT WITH IN REACH AND ABLE TO VERBALIZE WELL IN LATVIAN. AV FISTULA TO RIGHT ARM. FOR HEMODIALYSIS TOMORROW SCHEDULED. BED ALARM ON AND ENCOURAGED TO CALL FOR ANY HELP SHE MIGHT NEED. DX. OF PNA AND HYPERKALEMIA. THORACENTESIS AND PARACENTESIS DONE THIS A.M. PT. STATES SHE REALLY FEELS BETTER NOW. CARE PLANS FOR THE NIGHT DISCUSSED WITH HER.
[2019-02-24 19:52] LABS: GLUCOSE,BODY FLUID 201 mg/dL
[2019-02-24 19:53] LABS: GLUCOSE,BODY FLUID 194 mg/dL
[2019-02-24 20:00] VITALS: BP 145/68
[2019-02-24] MEDS: ATORVASTATIN 20 MG TAB PO SCH (21:21)
[2019-02-24] MEDS: ZOLPIDEM 5 MG TAB PO SCH (21:28)
[2019-02-24 21:47] LABS: SPECIMENTYPE,BODY FLUID THORACENTESIS
[2019-02-24 21:48] LABS: APPEARANCE,SPUN,BODY FLUID CLEAR (CLEAR); APPEARANCE,UNSPUN,BODY FLUID HAZY (CLEAR); COLOR,BODY FLUID YELLOW (LT YELLOW); POLYNUCLEAR, BODY FLUID 35 %; TOTAL VOLUME,BODY FLUID 1600 mL
[2019-02-24 21:49] LABS: APPEARANCE,SPUN,BODY FLUID CLEAR (CLEAR); APPEARANCE,UNSPUN,BODY FLUID HAZY (CLEAR); COLOR,BODY FLUID YELLOW (LT YELLOW); SPECIMENTYPE,BODY FLUID PARACENTESIS
[2019-02-24 21:50] LABS: POLYNUCLEAR, BODY FLUID 22 %; TOTAL VOLUME,BODY FLUID 7900 mL
[2019-02-24 22:04] LABS: WBC, BODY FLUID 101 /cu. mm.
[2019-02-24 22:05] LABS: RBC, BODY FLUID 626 /cu. mm.; WBC, BODY FLUID 102 /cu. mm.
[2019-02-24 22:05] LABS: RBC, BODY FLUID 73 /cu. mm.
[2019-02-24 22:21] LABS: LDH,BODY FLUID 123 U/L
[2019-02-25] VITALS: BP 133/70
--- NOTE | 2019-02-25 00:01 | NUR ---
PT. SITTING IN BED. AWAKE AND ALERT. ENDORSED TO ANOTHER RN FOR CONTINUITY OF CARE. PT. AWARE.
--- NOTE | 2019-02-25 00:01 | NUR ---
RECIEVED PT . AAOX4 , NID - OI2 SAT -WNL . IV SITE INTACT AND PATENT . C/O OF PAIN - WILL MEDICATE ORDERED . POC DISCUSSED AND VERBALIZED UNDERSTANDING. - CALL LIGHT WITHIN REACH. ON SAFETY / FALL PRECAUTION PROTOCOL - BED ALARM ON . WITH DRESSING ON LEFT FOOT - DRY AND INTACT . WILL CONT. TO MONITOR.
[2019-02-25] MEDS: MORPHINE SULFATE 2 MG/ML SYR IVP PRN ×2 (00:09→13:43)
[2019-02-25] MEDS: PIPERACILLIN/TAZOBACTAM 2.25 GM in DEXTROSE 5% 50 ML IV SCH ×4 (00:18→17:44)
[2019-02-25] MEDS: ONDANSETRON 4 MG/2 ML VIAL IM/IVP PRN (00:18)
--- NOTE | 2019-02-25 02:00 | NUR ---
MADE ROUNDS , RESTING ON BED . NO FURTHER COMPLAIN MADE AT THIS TIME - CALL LIGHT WITHIN REACH.
[2019-02-25 04:00] VITALS: BP 132/69
--- NOTE | 2019-02-25 04:00 | NUR ---
SLEEPING - CHEST RISE AND FALL EQUALLY - ON PHYSICAL PLANT EMPLOYEE.
--- NOTE | 2019-02-25 06:00 | NUR ---
REFUSED INCENTIVE SPIROMETRY - SLEEPY.
[2019-02-25] MEDS: LEVOTHYROXINE 0.112 MG TAB PO SCH ×2 (06:30→06:48)
[2019-02-25] MEDS: BLOOD GLUCOSE MONITORING 1 DEV DEV FS SCH ×4 (06:43→21:47)
[2019-02-25] MEDS: INSULIN LISPRO SLIDING SCALE 100 UNITS/ML VIAL SUBQ PRN ×3 (06:48→16:47)
--- NOTE | 2019-02-25 06:51 | NUR ---
REFUSED SYNTHYROID - WILL ENDORSED. Addendum: 02/25/19 at 0653 by Corrina Mantilla RN THE WORD ENDORSED IS AN ERROR ENTRY INSTEAD OF ENDORSE. Addendum: 02/25/19 at 0655 by Crorina Mantilla RN THE SYNTHROID TAB IS ALREADY OPENED PACKAGE - DISPOSED MEDICINE PROPERLY.
--- NOTE | 2019-02-25 07:02 | NUR ---
REFER TO RT FOR FURTHER ASSESSMENT O2 SAT IS BETWEEN 88 , 89 , 90 % PT IS TOO SLEEPY BUT THE REST OF V/S IS WNL - AWAKEABLE , TALKABLE , LATEST HGT 228.
--- NOTE | 2019-02-25 07:28 | NUR ---
ENDORSED TO AM SHIFT FOR CONT. OF CARE - REMINDS EDUAR TO FF UP RT FOR FURTHER ASSESSMENT OF THE PT.
--- NOTE | 2019-02-25 07:29 | NUR ---
RECEIVED REPORT FROM BOBCAT DRIVER/LABOR NURSE. PATIENT LYING DOWN IN BED, SLEEPING, AROUSABLE BY GIORGI. NO DISTRESS NOTED. DENIES ANY PAIN. RESPIRATIONS EVEN, UNLABORED, ON ROOM AIR. AAOX4, CALM, COOPERATIVE, SKIN COLOR APPROPRIATE TO ETHNICITY, WARM TO TOUCH. RIGHT TOE ULCERATION S/P DEBRIDEMENT BY DRIVER EDUCATION ROAD INSTRUCTOR YESTERDAY, DRY DRY AND INTACT. B/L HEELS HEALED SCAB NOTED, HEEL PROTECTORS ON. IV SITE INTACT, PATENT, AND ON SALINE LOCK. REVIEWED PLAN OF CARE WITH PATIENT. PATIENT VERBALIZED UNDERSTANDING. SAFETY MEASURES IN PLACE, CALL LIGHT WITHIN REACH. WILL CONTINUE TO MONITOR.
[2019-02-25 08:00] VITALS: BP 181/95
[2019-02-25] MEDS: ALBUTEROL SULFATE/IPRATROPIU 3 ML SOL IH SCH ×3 (08:10→19:17)
[2019-02-25] MEDS: LOSARTAN 50 MG TAB PO SCH ×3 (09:00→21:37)
[2019-02-25] MEDS ORDERED: EPOETIN ALFA 10,000 UNITS/ML VIAL SUBQ SCH (09:00)
[2019-02-25] MEDS: PREGABALIN 50 MG CAP PO SCH ×2 (09:28→21:36)
[2019-02-25] MEDS: VIT-B COMP/VIT-C/FOLIC ACID 1 TAB PO SCH (09:29)
[2019-02-25] MEDS: PREGABALIN 25 MG CAP PO SCH ×2 (09:29→21:36)
--- NOTE | 2019-02-25 09:35 | NUR ---
PATIENT SITTING IN BED. HD NURSE AT BEDSIDE TO START HD. SCHEDULED MEDICATIONS DUE GIVEN. WILL CONTINUE TO MONITOR.
[2019-02-25 12:00] VITALS: BP 178/91
--- NOTE | 2019-02-25 12:43 | NUR ---
PATIENT LYING DOWN IN BED. HEMODIALYSIS CURRENTLY RUNNING. SCHEDULED MEDICATIONS DUE GIVEN. WILL CONTINUE TO MONITOR.
--- NOTE | 2019-02-25 13:49 | NUR ---
HEMODIALYSIS COMPLETED, 3.5 L OUT. BP STILL HIGH AT 178/91, 93 PULSE. ADMINISTERED [place] WITHHELD EARLIER AND OTHER SCHEDULED MEDICATIONS AT THIS TIME. WILL CONTINUE TO MONITOR.
[2019-02-25] MEDS ORDERED: MORPHINE SULFATE 2 MG/ML SYR IVP PRN (14:45)
[2019-02-25 16:00] VITALS: BP 133/67
--- NOTE | 2019-02-25 16:51 | NUR ---
SCHEDULED MEDICATIONS DUE GIVEN. WILL CONTINUE TO MONITOR.
--- NOTE | 2019-02-25 18:30 | NUR ---
PATIENT SITTING IN BED TALKING WITH FAMILY MEMBERS AT BEDSIDE. WILL CONTINUE TO MONITOR.
--- NOTE | 2019-02-25 19:24 | NUR ---
GAVE REPORT TO SALES DEVELOPMENT COORDINATOR NURSE FOR CONTINUITY OF CARE. PATIENT IN STABLE CONDITION.
--- NOTE | 2019-02-25 19:25 | NUR ---
RECEIVED REPORT FROM AM SHIFT NURSE, EDUAR. AAOX4, AMBULATE TOWARDS THE COMMODE. PATIENT SEMI SAHU'S POSITION. NO DISTRESS NOTED.C/O OF HEADACHE. WITH RESPIRATIONS EVEN, UNLABORED, ON ROOM AIR. WITH RIGHT BIG TOE ULCERATION S/P DEBRIDEMENT BY MACHINING ENGINEER YESTERDAY, DRY DRY AND INTACT. WITH L AND R HEEL SCAB S/P DEBRIDEMENT WITH MACHINING ENGINEER WITH BILATERAL HEEL PROTECTORS IN PLACE. CALL LIGHT WITHIN REACH. WILL CONTINUE TO MONITOR.
--- NOTE | 2019-02-25 19:26 | NUR ---
RECEIVED PT ON 2L NC WITH AN SP02 OF 96% AND CLEAR BREATH SOUNDS. NO RESPIRATORY DISTRESS NOTED AT THIS TIME; HR 99 AND RR 18. HHN TX GIVEN ORDERED WITH NO ADVERSE REACTION. WILL CONTINUE TO MONITOR PT.
[2019-02-25 19:46] VITALS: BP 164/74
--- NOTE | 2019-02-25 21:15 | NUR ---
C/O OF LOW BACK PAIN, REPOSITIONED PT; WITH PT'S ASSISTANCE
--- NOTE | 2019-02-25 21:23 | NUR ---
PT SAID THAT HER BACK STILL UNRELIVED BY REPOSITIONING. WILL MEDICATE WITH MORPHINE, SHE SAID SHE HAS 7/10 LOW BACK PAIN
[2019-02-25] MEDS: ATORVASTATIN 20 MG TAB PO SCH (21:37)
[2019-02-25] MEDS: ZOLPIDEM 5 MG TAB PO SCH (21:37)
[2019-02-26] VITALS: BP 111/70
--- NOTE | 2019-02-26 | NUR ---
REPOSITIONED PT PLACED PILLOW ON HER BACK . NO COMPLAINTS AT THIS TIME
[2019-02-26] MEDS: PIPERACILLIN/TAZOBACTAM 2.25 GM in DEXTROSE 5% 50 ML IV SCH ×3 (00:32→12:22)
[2019-02-26 04:00] VITALS: BP 134/72
[2019-02-26] MEDS: BLOOD GLUCOSE MONITORING 1 DEV DEV FS SCH ×2 (05:21→12:26)
[2019-02-26] MEDS: INSULIN LISPRO SLIDING SCALE 100 UNITS/ML VIAL SUBQ PRN ×2 (05:26→12:26)
[2019-02-26] MEDS: LEVOTHYROXINE 0.112 MG TAB PO SCH (06:09)
--- NOTE | 2019-02-26 06:47 | NUR ---
PT AWAKE, A O X 4, PT IN STABLE CONDITION WILL ENDORSE TO NEXT SHIFT
[2019-02-26 06:55] LABS: ANION GAP 10.2 (8-16); CARBON DIOXIDE 30.1 mmol/L (21-32); CREATININE 3.3 mg/dL (0.6-1.3); POTASSIUM 4.3 mmol/L (3.5-5.1)
[2019-02-26] MEDS: ALBUTEROL SULFATE/IPRATROPIU 3 ML SOL IH SCH ×2 (07:08→13:00)
--- NOTE | 2019-02-26 07:08 | NUR ---
OFF SUPPLEMENTAL OXYGEN NO SOB NOTED SATURATION 90% ON ROOM AIR POST HHN THERAY PLACED ON SUPPLEMENTAL OXYGEN AT 2 LPM VIA NC WITH HUMIDIFIER PREVIOUS C/O NASAL DRYNESS
--- NOTE | 2019-02-26 07:09 | NUR ---
RECEIVED REPORT FROM MIXING PAN TENDER NURSE. PATIENT LYING DOWN IN BED, SLEEPING, AROUSABLE BY VOICE. NO DISTRESS NOTED. DENIES ANY PAIN. RESPIRATIONS EVEN, UNLABORED, ON ROOM AIR. AAOX4, CALM, COOPERATIVE, SKIN COLOR APPROPRIATE TO ETHNICITY, WARM TO TOUCH. RIGHT TOE ULCERATION S/P DEBRIDEMENT BY [employer] SECURITY 02/24/19, DRY DRY AND INTACT. B/L HEELS HEALED SCAB NOTED, HEEL PROTECTORS ON. IV SITE INTACT, PATENT, AND ON SALINE LOCK. REVIEWED PLAN OF CARE WITH PATIENT. PATIENT VERBALIZED UNDERSTANDING. SAFETY MEASURES IN PLACE, CALL LIGHT WITHIN REACH. WILL CONTINUE TO MONITOR.
[2019-02-26 07:28] LABS: BASOPHILS % (AUTO) 0.8 % (0.0-2.0); EOSINOPHILS # (AUTO) 0.2 K/uL (0-0.4); EOSINOPHILS % (AUTO) 4.2 % (0.0-4.0); HEMATOCRIT 30.5 % (36-48); HEMOGLOBIN 10.1 g/dL (12.0-16.0); LYMPHOCYTES # (AUTO) 0.6 K/uL (2.5-16.5); MEAN CORPUSCULAR HEMOGLOBIN 31 pg (27-31); MEAN CORPUSCULAR HGB CONC 33 g/dL (33-37); MEAN CORPUSCULAR VOLUME 94.5 fL (80-94); MONOCYTES # (AUTO) 0.5 K/uL (0.8-1.0); MONOCYTES % (AUTO) 10.9 % (1.7-9.3); NEUTROPHILS # (AUTO) 3.6 K/uL (1.8-7.7); NEUTROPHILS % (AUTO) 72.1 % (42.2-75.2); PLATELET COUNT (AUTO) 172 K/uL (140-450); RED BLOOD CELL COUNT(AUTO) 3.23 MIL/uL (4.20-5.40); RED CELL DISTRIBUTION WIDTH 17.5 % (11.6-13.7)
[2019-02-26 08:00] VITALS: BP 137/69
[2019-02-26] MEDS: SUMAtriptan 25 MG TAB PO PRN (08:00)
[2019-02-26] MEDS: VIT-B COMP/VIT-C/FOLIC ACID 1 TAB PO SCH (08:31)
[2019-02-26] MEDS: LOSARTAN 50 MG TAB PO SCH (08:32)
[2019-02-26] MEDS: PREGABALIN 25 MG CAP PO SCH (08:32)
[2019-02-26] MEDS: PREGABALIN 50 MG CAP PO SCH (08:32)
--- NOTE | 2019-02-26 08:37 | NUR ---
PATIENT SITTING DOWN IN BED WATCHING TV. NO DISTRESS NOTED. HEADACHE FEELING BETTER PER PATIENT REPORTS. SCHEDULED MEDICATIONS DUE GIVEN. WILL CONTINUE TO MONITOR.
--- NOTE | 2019-02-26 10:05 | NUR ---
HAZARDOUS MATERIALS TANKER DRIVER ASSIST WITH EDUAR/RN AMBULATED PATIENT ON ROOM AIR X 40 FEET PRESENTING WITH SOB SATURATION 85% AT REST SATURATION ASCENDING TO 89%-90%
[2019-02-26] MEDS ORDERED: AMOX1TAB15 PO (10:06)
[2019-02-26] MEDS ORDERED: LACT-81 PO (10:06)
--- NOTE | 2019-02-26 10:06 | NUR ---
LOWEST SATURATION PRE AND DURING AMBULATION WITHOUT SUPPLEMENTAL OXYGEN AT 78%-79% AT REST DURING AMBULATION ASCENDING TO 85%
--- NOTE | 2019-02-26 10:15 | NUR ---
PATIENT OFF OXYGEN FOR 1 HOUR, RESTING O2 SAT IS 89-90% ON ROOM AIR. AMBULATED PATIENT ABOUT 40 FEET IN [facility] ON ROOM AIR, O2 SAT GOES DOWN TO 85%. WILL LET KNOW. Addendum: 02/26/19 at 1033 by Fredrick Mota RN AMBULATING 40 FT ON ROOM AIR, LOWEST O2 SAT WAS 78%. PLACED OXYGEN 2L VIA NC ON PATIENT. STARTED AT O2 SAT 93%, THEN AMBULATED 60 FT WITH 2 L/MIN VIA NC OXYGEN, PATIENT DESAT TO 87-90%%.
--- NOTE | 2019-02-26 10:25 | NUR ---
PRE AMBULATION WITH SUPPLEMENTAL OXYGEN AT 2 LPM VIA NC SATURATION 93% PATIENT AMBULATED 60 FEET WITH SUPPLEMENTAL OXYGEN AT 2 LPM VIA NC INCREASED SOB WITH SATURATION DESCENDING TO 87%
--- NOTE | 2019-02-26 10:30 | NUR ---
REMAINS ON ROOM AIR
--- NOTE | 2019-02-26 11:39 | NUR ---
CALLED DR. NIGHAT MCDOWELL [phone] TO REVIEW ABG SAMPLE REPORT MD OUT OF AREA CONVEYED RESULTS TO DR. DELILAH SILVA
[2019-02-26 12:00] VITALS: BP 149/71
--- NOTE | 2019-02-26 12:29 | NUR ---
SCHEDULED MEDICATIONS DUE GIVEN. WILL CONTINUE TO MONITOR.
[2019-02-26] MEDS ORDERED: LEVO0.118 PO (12:48)
--- NOTE | 2019-02-26 13:35 | NUR ---
PATIENT REFUSED DISCHARGE IN PROCESS NO SOB NOTED EDUAR/RN NOTIFIED
--- NOTE | 2019-02-26 14:00 | NUR ---
DISCHARGE INSTRUCTIONS PROVIDED TO PATIENT IN PREFERRED LANGUAGE OF MONGOLIAN. INSTRUCTIONS OF NEW/CHANGED MEDICATIONS AND SIDE EFFECTS, DIET REGIMEN, AND FOLLOW-UP WITH PCP AND NURSE REVIEWER. ANSWERED ALL OF PATIENT/FAMILY QUESTIONS REGARDING DISCHARGE. PATIENT/FAMILY VERBALIZED UNDERSTANDING. IV SITE REMOVED WITH MINIMAL BLOOD AND LUMEN COMPLETELY INTACT. ID BANDS REMOVED. ESCORTED PATIENT DOWN TO LOBBY VIA WHEELCHAIR. PATIENT DISCHARGED AT THIS TIME IN STABLE CONDITION TO HOME.
[2019-03-02 20:17] LABS: ANTI-NUCLEAR ANTIBODY TITER POSITIVE (Negative)
== END 2019-02-26 14:00 | disposition home health service (06) | DRG 853 ==
LOC: MED 12:34 → MTU 15:30
PROVIDERS: ADMIT General Practice; ATTEND General Practice
PROC: 5A1D70Z Performance of Urinary Filtration, Intermittent, Less than 6 Hours Per Day (ICD-10-PCS; 2019-02-22)
PROC: 0JBQ0ZZ Excision of Right Foot Subcutaneous Tissue and Fascia, Open Approach (ICD-10-PCS; principal; 2019-02-23)
PROC: 5A1D70Z Performance of Urinary Filtration, Intermittent, Less than 6 Hours Per Day (ICD-10-PCS; 2019-02-23)
PROC: 0W993ZZ Drainage of Right Pleural Cavity, Percutaneous Approach (ICD-10-PCS; 2019-02-24)
PROC: 0W9G3ZZ Drainage of Peritoneal Cavity, Percutaneous Approach (ICD-10-PCS; 2019-02-24)
PROC: 5A1D70Z Performance of Urinary Filtration, Intermittent, Less than 6 Hours Per Day (ICD-10-PCS; 2019-02-25)
DX: A41.9 Sepsis, unspecified organism (principal); J69.0 Pneumonitis due to inhalation of food and vomit; I50.43 Acute on chronic combined systolic (congestive) and diastolic (congestive) heart failure; E43 Unspecified severe protein-calorie malnutrition; N17.0 Acute kidney failure with tubular necrosis; N18.6 End stage renal disease; I13.2 Hypertensive heart and chronic kidney disease with heart failure and with stage 5 chronic kidney disease, or end stage renal disease; E87.1 Hypo-osmolality and hyponatremia; R18.8 Other ascites; L97.929 Non-pressure chronic ulcer of unspecified part of left lower leg with unspecified severity; E11.621 Type 2 diabetes mellitus with foot ulcer; E11.22 Type 2 diabetes mellitus with diabetic chronic kidney disease; E87.5 Hyperkalemia; E11.65 Type 2 diabetes mellitus with hyperglycemia; E83.42 Hypomagnesemia; L97.519 Non-pressure chronic ulcer of other part of right foot with unspecified severity; S91.302A Unspecified open wound, left foot, initial encounter; X58.XXXA Exposure to other specified factors, initial encounter; E11.42 Type 2 diabetes mellitus with diabetic polyneuropathy; E78.5 Hyperlipidemia, unspecified; D63.8 Anemia in other chronic diseases classified elsewhere; Z68.25 Body mass index [BMI] 25.0-25.9, adult; Z88.8 Allergy status to other drugs, medicaments and biological substances; Z79.899 Other long term (current) drug therapy; Z99.2 Dependence on renal dialysis; Y93.89 Activity, other specified; Y92.89 Other specified places as the place of occurrence of the external cause; Y99.8 Other external cause status; Z91.11 Patient's noncompliance with dietary regimen; Z91.15 Patient's noncompliance with renal dialysis
CPT/HCPCS: 36415; 36600; 49083; 71045; 76604; 76705; 76942; 80048; 80053; 80305; 81001; 82150; 82803; 82945; 82948; 83036; 83605; 83615; 83735; 83880; 84100; 84157; 84436; 84443; 84484; 85025; 85610; 85730; 86038; 86704; 86706; 86708; 86709; 86803; 87040; 87070; 87075; 87081; 87086; 87205; 87340; 87804; 89051; 90935; 93005; 94640; 96374; 99285; J0360; J0885; J1644; J1815; J1956; J2001; J2270; J2405; J2543; J3475; J7030; J7060; J7613; J7620; Q0092

== ENCOUNTER 2019-07-30 20:02 | Emergency (ER) | payer OTHER, MEDICAID ==
[~2019-07-30] VITALS: Ht 170.2 cm; Wt 78.9 kg
[~2019-07-30 20:02] MED LIST changes: +AMOX1TAB15 PO; +LACT-81 PO; +LEVO0.118 PO; +[UNRECOGNIZED DRUG - CODE] PO; -[UNRECOGNIZED DRUG - CODE] PO
--- NOTE | 2019-07-30 20:05 | NUR ---
PT TAKEN TO BED 5
[2019-07-30 20:12] VITALS: BP 158/87
--- NOTE | 2019-07-30 20:20 | NUR ---
X-Ray at bedside.
[2019-07-30] MEDS ORDERED: KETOROLAC 60 MG/2 ML VIAL IM ONE (20:30)
--- NOTE | 2019-07-30 20:34 | NUR ---
60MG TORADOL SHOT WASTED, PER ERMD WANTS TO GIVE MORPHINE INSTEAD
[2019-07-30] MEDS ORDERED: MORPHINE SULFATE 4 MG/ML SYR IM ONE (20:35)
--- NOTE | 2019-07-30 20:39 | NUR ---
49 YEAR OLD FEMALE COMPLAINS OF RIGHT ANKLE PAIN X TODAY. PER PT SHE WAS WALKING AND THEN HEARD A POP, ALOT OF PAIN SINCE. +2 PEDAL PULSE, LIMITED ROM. PT DENIES ANY TRAUMA. PT AOX4, BREATHING EVEN AND UNLABORED, SKIN WARM AND DRY. BED IN LOWEST POSITION,LOCKED, BED RAIL UPX1. PMH - HTN, DM2, NEUROPATHY, KIDNEY DISEASE ALLERGIES - METFORMIN
--- NOTE | 2019-07-30 21:23 | NUR ---
PTS RIGHT ANKEL WAS PLACED IN A ANKEL STIRRUP. PTS PMSC WNL.
--- NOTE | 2019-07-30 22:00 | NUR ---
PER DOC ORDER REMOVE ANKEL STIRRUP AND TO PUT SUGAR TONG SPLINT. PTS PMSC WNL.
--- NOTE | 2019-07-30 22:03 | NUR ---
pedal pulse +2 and cap refill < 3 seconds in right foot
[2019-07-30 22:05] VITALS: BP 145/74
--- NOTE | 2019-07-30 22:05 | NUR ---
Patient discharged with v/s stable. Written and verbal after care instructions about ankle fracture given and explained. Patient alert, oriented and verbalized understanding of instructions. Wheel Chair Assisted with to car. All questions addressed prior to discharge. ID band removed. Patient advised to follow up with PMD. Rx of norco given. Patient educated on indication of medication including possible reaction and side effects. Opportunity to ask questions provided and answered.
== END 2019-07-30 22:05 | disposition home or self-care (01) ==
LOC: MED 20:02
DX: S82.851A Displaced trimalleolar fracture of right lower leg, initial encounter for closed fracture (principal); E11.22 Type 2 diabetes mellitus with diabetic chronic kidney disease; I13.0 Hypertensive heart and chronic kidney disease with heart failure and stage 1 through stage 4 chronic kidney disease, or unspecified chronic kidney disease; N18.9 Chronic kidney disease, unspecified; I50.9 Heart failure, unspecified; Z98.890 Other specified postprocedural states; Z88.8 Allergy status to other drugs, medicaments and biological substances; Z79.899 Other long term (current) drug therapy; X58.XXXA Exposure to other specified factors, initial encounter; Y93.89 Activity, other specified; Y92.89 Other specified places as the place of occurrence of the external cause; Y99.8 Other external cause status
CPT/HCPCS: 29515; 73610; 96372; 99283; J1885; J2270; Q0092

== ENCOUNTER 2019-08-01 17:59 | Inpatient (IN) | payer OTHER, MEDICAID, SELFPAY ==
[~2019-08-01] VITALS: Ht 170.2 cm; Wt 78.9 kg
[2019-08-01 18:06] VITALS: BP 117/56
--- NOTE | 2019-08-01 18:29 | NUR ---
49 Y/O FEMALE FROM HOME C/O SWELLING TO RT ANKLE PAIN S/P FALL 3 DAYS AGO. PT STATES SHE WAS SEEN AT [facility] 2 DAYS AGO AND SPLINT APPLIED TO RT LEG. NOTICABLE SWELLING TO RT LEG. 10/10 PAIN RADIATING TOWAD HIP. STATES SHE MISSED DIALYSIS TODAY DUE TO INABILITY TO WALK DOWN STEPS. PT STATES SHE RECEIVES DIALYSIS T,WED,TH, SAT. +NAUSEA/VOMITING SINCE YESTERDAY. ABD SOFT, ROUND, NONTENDER TO PALP. STATES NO URINE PRODUCTION. USES O2 AT HOME PRN. PLACED ON OXYGEN AT THIS TIME VIA NC. MEDHX: ESRD, HTN, DM, CHF
[2019-08-01] MEDS ORDERED: MORPHINE SULFATE 2 MG/ML SYR IVP ONE (18:30)
[2019-08-01] MEDS ORDERED: ONDANSETRON 4 MG/2 ML VIAL IVP ONE (18:30)
--- NOTE | 2019-08-01 18:30 | NUR ---
DR GAINES AT BEDSIDE EXAMINING PT
--- NOTE | 2019-08-01 18:32 | NUR ---
XRAY AT BEDSIDE
--- NOTE | 2019-08-01 18:50 | NUR ---
20G IV PLACED TO LT AC, MEDICATIONS GIVEN AT THIS TIME
[2019-08-01 19:05] LABS: BASOPHILS # (AUTO) 0.1 K/uL (0.00-0.22); BASOPHILS % (AUTO) 1.1 % (0.0-2.0); EOSINOPHILS # (AUTO) 0.1 K/uL (0-0.4); EOSINOPHILS % (AUTO) 1.5 % (0.0-4.0); HEMATOCRIT 34.5 % (36-48); HEMOGLOBIN 11.1 g/dL (12.0-16.0); LYMPHOCYTES # (AUTO) 0.5 K/uL (2.5-16.5); MEAN CORPUSCULAR HEMOGLOBIN 31 pg (27-31); MEAN CORPUSCULAR HGB CONC 32 g/dL (33-37); MEAN CORPUSCULAR VOLUME 96.9 fL (80-94); MONOCYTES # (AUTO) 0.7 K/uL (0.8-1.0); MONOCYTES % (AUTO) 7.4 % (1.7-9.3); NEUTROPHILS # (AUTO) 7.9 K/uL (1.8-7.7); PLATELET COUNT (AUTO) 247 K/uL (140-450); RED BLOOD CELL COUNT(AUTO) 3.57 MIL/uL (4.20-5.40); RED CELL DISTRIBUTION WIDTH 15.8 % (11.6-13.7); WHITE BLOOD COUNT (AUTO) 9.3 K/uL (4.8-10.8)
--- NOTE | 2019-08-01 19:07 | NUR ---
Pt report RECEIVED FROM CNADIE HARVEY. Transfer of care at this time.
--- NOTE | 2019-08-01 19:12 | NUR ---
REPORT GIVEN TO CANDIE PAZ. TRANSFER OF CARE AT THIS TIME
--- NOTE | 2019-08-01 19:12 | NUR ---
APPLIED LONG LEG AND SUGAR TONG SPLINT TO RIGHT LEG WITHOUT ANY ISSUES
[2019-08-01 19:24] LABS: PROTHROMBIN TIME 12.4 secs (10.8-13.4)
[2019-08-01 19:37] LABS: ALBUMIN 2.1 g/dL (3.4-5.0); ANION GAP 18.2 (8-16); CARBON DIOXIDE 23.5 mmol/L (21-32); POTASSIUM 5.7 mmol/L (3.5-5.1); TOTAL BILIRUBIN 0.6 mg/dL (0.0-1.0)
[2019-08-01 19:40] LABS: CREATININE 5.1 mg/dL (0.6-1.3)
[2019-08-01] MEDS ORDERED: INSULIN REGULAR, HUMAN 100 UNIT/ML VIAL IVP ONE ×2 (19:45→21:05)
--- NOTE | 2019-08-01 19:54 | NUR ---
PT RESTING IN BED IN POSITION OF COMFORT, BED LOW AND LOCKED, 2 SIDERAILS UP, WILL CONTINUE TO MONITOR.
[2019-08-01] MEDS ORDERED: ASPIRIN 81 MG TAB.CHEW PO ONE (21:00)
[2019-08-01] MEDS ORDERED: MORPHINE SULFATE 2 MG/ML SYR IVP PRN (21:15)
[2019-08-01] MEDS ORDERED: HYDROcodone/APAP 5/325 MG 1 TAB TAB PO PRN (21:15)
[2019-08-01] MEDS ORDERED: DOCUSATE SODIUM 100 MG GELCAP PO PRN (21:15)
[2019-08-01] MEDS ORDERED: ACETAMINOPHEN 325 MG TAB PO PRN (21:15)
[2019-08-01] MEDS ORDERED: DEXTROSE 50% 50 ML SYR IVP PRN (21:20)
[2019-08-01] MEDS ORDERED: PIPERACILLIN/TAZOBACTAM 3.375 GM in DEXTROSE 5% 50 ML IV ONE (21:30)
--- NOTE | 2019-08-01 21:32 | NUR ---
AT BEDSIDE SPEAKING WITH PT
[2019-08-01 21:56] LABS: MAGNESIUM 2.3 mg/dL (1.8-2.4); THYROID STIMULATING HORMONE 11.54 uIU/mL (0.34-3.74)
--- NOTE | 2019-08-01 22:02 | NUR ---
Patient will be admitted to care of . Admited to [facility]. Will go to room 107B. Belongings list completed. Report to CANDIE ROLDAN.
--- NOTE | 2019-08-01 22:02 | NUR ---
ADMITTED 49 Y/O FEMALE VIA GURNEY FROM [facility]. PATIENT IS AAOX4, RESPIRATION EVEN AND UNLABORED. DENIES PAIN. HAS JOHANN AV SHUNT, NOTED BRUIT AND THRILL. DIALYSIS Q T, W, TH, SAT. IV SITE AT LAC 20G. INTACT AND PATENT. PATIENT IS R/O COVID 19. ON DROPLET ISOLATION PRECAUTION. FALL RISK PROTOCOL IN PLACE. INITIAL ASSESSMENT DONE. V/S CHECKED. MRSA AND COVID 19 NASAL SWAB DONE. PLAN OF CARE WAS DISCUSSED. CALL LIGHT WITHIN REACH. WILL CONTINUE TO MONITOR.
[2019-08-01] MEDS ORDERED: MAGNESIUM HYDROXIDE 2400 MG/30 ML UDC PO PRN (22:20)
[2019-08-01] MEDS ORDERED: SUMAtriptan 25 MG TAB PO PRN (22:20)
[2019-08-01] MEDS ORDERED: PIPERACILLIN/TAZOBACTAM 3.375 GM VIAL IV ONE (22:41)
[2019-08-01] MEDS: MORPHINE SULFATE 2 MG/ML SYR IVP PRN (23:13)
--- NOTE | 2019-08-01 23:13 | NUR ---
PATIENT C/O RIGHT ANKLE PAIN 10/25. RELAXATION TECHNIQUE DONE. PAIN MED GIVEN ORDERED. WILL CONTINUE TO MONITOR.
[2019-08-02] VITALS: BP 125/65
--- NOTE | 2019-08-02 00:13 | NUR ---
PATIENT IS CALM. DENIES PAIN.
[2019-08-02 04:00] VITALS: BP 103/63
[2019-08-02] MEDS ORDERED: PIPERACILLIN/TAZOBACTAM 2.25 GM VIAL IV ONE (06:07)
[2019-08-02] MEDS: LEVOTHYROXINE 0.112 MG TAB PO SCH (06:16)
[2019-08-02] MEDS: PIPERACILLIN/TAZOBACTAM 2.25 GM in DEXTROSE 5% 50 ML IV SCH ×3 (06:16→23:58)
[2019-08-02] MEDS: BLOOD GLUCOSE MONITORING 1 DEV DEV FS SCH ×4 (06:17→21:00)
[2019-08-02] MEDS: METOCLOPRAMIDE 10 MG TAB PO SCH ×4 (06:33→16:30)
[2019-08-02 06:34] LABS: BASOPHILS # (AUTO) 0.1 K/uL (0.00-0.22); BASOPHILS % (AUTO) 1.5 % (0.0-2.0); EOSINOPHILS # (AUTO) 0.4 K/uL (0-0.4); HEMATOCRIT 33.7 % (36-48); LYMPHOCYTES # (AUTO) 0.8 K/uL (2.5-16.5); LYMPHOCYTES % (AUTO) 8.6 % (20.5-51.1); MEAN CORPUSCULAR HEMOGLOBIN 32 pg (27-31); MEAN CORPUSCULAR HGB CONC 33 g/dL (33-37); MONOCYTES # (AUTO) 0.7 K/uL (0.8-1.0); MONOCYTES % (AUTO) 7.9 % (1.7-9.3); NEUTROPHILS # (AUTO) 7.2 K/uL (1.8-7.7); PLATELET COUNT (AUTO) 296 K/uL (140-450); RED BLOOD CELL COUNT(AUTO) 3.48 MIL/uL (4.20-5.40); RED CELL DISTRIBUTION WIDTH 15.8 % (11.6-13.7); WHITE BLOOD COUNT (AUTO) 9.2 K/uL (4.8-10.8)
[2019-08-02] MEDS: MORPHINE SULFATE 2 MG/ML SYR IVP PRN ×3 (06:34→17:05)
[2019-08-02] MEDS: INSULIN LISPRO SLIDING SCALE 100 UNITS/ML VIAL SUBQ PRN ×2 (06:34→22:52)
--- NOTE | 2019-08-02 06:34 | NUR ---
PATIENT C/O RIGHT ANKLE PAIN 10/25. RELAXATION TECHNIQUE DONE. PAIN MED GIVEN ORDERED. WILL CONTINUE TO MONITOR.
[2019-08-02 07:29] LABS: MAGNESIUM 2.1 mg/dL (1.8-2.4); PHOSPHORUS 6.3 mg/dL (2.5-4.9)
--- NOTE | 2019-08-02 07:34 | NUR ---
PATIENT IS RESTING. DENIES PAIN
--- NOTE | 2019-08-02 07:35 | NUR ---
PATIENT IS NOT IN ANY ACUTE DISTRESS. ENDORSED PATIENT TO AM SHIFT RN FOR CONTINUITY OF CARE.
--- NOTE | 2019-08-02 07:36 | NUR ---
RECEIVED REPORT FROM ROLL TABLE OPERATOR NURSE. PT RESTING IN BED IN STABLE CONDITION. RESPIRATIONS EVEN AND UNLABORED. NO DISTRESS NOTED. SAFETY MEASURES IN PLACE, BED IN LOWEST POSITION, CALL LIGHT WITHIN REACH. WILL CONTINUE TO MONITOR.
[2019-08-02 07:58] LABS: ANION GAP 18.3 (8-16); CARBON DIOXIDE 25.1 mmol/L (21-32)
[2019-08-02 08:00] VITALS: BP 108/66
[2019-08-02 08:18] LABS: CREATININE 5.3 mg/dL (0.6-1.3); POTASSIUM 6.4 mmol/L (3.5-5.1)
[2019-08-02 08:29] LABS: CHOL/HDL RATIO 3.2 (1-4.5)
[2019-08-02] MEDS ORDERED: PREGABALIN 50 MG CAP PO SCH (09:00)
--- NOTE | 2019-08-02 09:08 | NUR ---
PATIENT HAS BEEN SCREENED AND CATEGORIZED MODERATE NUTRITION RISK. PATIENT WILL BE SEEN WITHIN 3-5 DAYS OF ADMISSION. 08/04/19 08/06/[address]
--- NOTE | 2019-08-02 09:30 | NUR ---
SCHEDULED MEDICATIONS ADMINISTERED. PT TOLERATED WELL. WILL CONTINUE TO MONITOR.
[2019-08-02] MEDS: LORazepam 1 MG TAB PO SCH ×2 (09:35→21:46)
[2019-08-02] MEDS: FERROUS SULFATE 325 MG TABEC PO SCH (09:36)
[2019-08-02] MEDS: LOSARTAN 50 MG TAB PO SCH ×3 (09:36→21:45)
[2019-08-02] MEDS: PREGABALIN 25 MG CAP PO SCH ×2 (09:36→21:44)
[2019-08-02] MEDS: PREGABALIN 50 MG CAP PO SCH ×2 (09:37→21:45)
--- NOTE | 2019-08-02 09:59 | NUR ---
DR. ESTRADA (NEPHRO) ASKED FOR [facility] TO BE CALLED FOR [facility] FOR PT. [facility] NOTIFIED OF STAT ORDER.
--- NOTE | 2019-08-02 11:00 | NUR ---
DIALYSIS STARTED BEDSIDE. PT TOLERATING WELL. WILL CONTINUE TO MONITOR
[2019-08-02 12:00] VITALS: BP 110/62
[2019-08-02] MEDS ORDERED: LIDOCAINE 2% 1000 MG/50 ML VIAL INJ ONE ×2 (12:15→12:26)
--- NOTE | 2019-08-02 12:30 | NUR ---
CONSENT OBTAINED FOR BEDSIDE PROCEDURE. RIGHT ANKLE FRACTURE REDUCTION. CONSENT IN CHART
--- NOTE | 2019-08-02 14:12 | NUR ---
PT IS RESTING QUIETLY IN BED RECEIVING DIALYSIS. NO DISTRESS NOED. WILL CONTINUE TO MONITOR.
[2019-08-02 16:00] VITALS: BP 144/79
--- NOTE | 2019-08-02 17:05 | NUR ---
PAIN MEDICATION GIVEN FOR RIGHT ANKLE PAIN. 08/24. WILL REASSESS IN ONE HOUR.
--- NOTE | 2019-08-02 19:26 | NUR ---
ENDORSED PATIENT IN STABLE CONDITION TO JANITOR HEAD NURSE FOR CONTINUITY OF CARE.
--- NOTE | 2019-08-02 19:27 | NUR ---
Patient's Plan of Care was discussed and reviewed with MEDICAID ELIGIBILITY SPECIALIST: LIVIA. SAFETY MEASURES ARE IN PLACE. WILL ROUND FREQUENTLY.
--- NOTE | 2019-08-02 19:27 | NUR ---
RECD. SITTING ON BED, AWAKE, A/OX4, WATCHING TV. RESPIRATION EVEN AND UNLABORED, ON 02 AT 2 LITERS N/C. IV SALINE LOCK AT THE LEFT AC G20, PATENT AND INTACT. AV SHUNT AT THE RIGHT ARM WITH BRUIT AND THRILL. PLAN OF CARE DISCUSSED. VERBALIZED UNDERSTANDING. DENIES PAIN 0/10.
[2019-08-02 20:00] VITALS: BP 96/55
[2019-08-02] MEDS ORDERED: ATORVASTATIN 20 MG TAB PO SCH (21:00)
[2019-08-02] MEDS ORDERED: ZOLPIDEM 5 MG TAB PO SCH (21:00)
--- NOTE | 2019-08-02 21:45 | NUR ---
DUE PO MEDICATIONS GIVEN. ATE 100% OF SNACK.
[2019-08-02] MEDS: ZOLPIDEM 5 MG TAB PO SCH ×2 (21:46→22:14)
[2019-08-03] VITALS: BP 124/71
--- NOTE | 2019-08-03 | NUR ---
SLEEPING COMFORTABLY IN BED.
--- NOTE | 2019-08-03 02:15 | NUR ---
AWAKE IN BED, NO SOB NOTED. COMPLAINING OF ABDOMINAL PAIN, 09/24. WILL BE MEDICATED PER MD ORDER.
[2019-08-03 02:20] VITALS: BP 163/68
[2019-08-03] MEDS: MORPHINE SULFATE 2 MG/ML SYR IVP PRN ×2 (02:29→17:31)
--- NOTE | 2019-08-03 04:30 | NUR ---
CLEANSED BODY AND EXTREMITIES WITH CHLORHEXIDINE WIPES IN PREPARATION FOR SURGERY TODAY.
--- NOTE | 2019-08-03 06:00 | NUR ---
WANTS A PILL FOR ANXIETY, INQUIRED ON DR. DAVIS IF THE ATIVAN TABLET FOR 0900 TODAY CAN BE GIVEN, STATED DON'T GIVE. PATIENT MAY NEED CARDIOLOGY CONSULT FIRST BEFORE SURGERY, KEEP PATIENT NPO AND WAIT FOR DR. MARSHALL.
[2019-08-03] MEDS: PIPERACILLIN/TAZOBACTAM 2.25 GM in DEXTROSE 5% 50 ML IV SCH ×3 (06:27→22:04)
[2019-08-03] MEDS: LEVOTHYROXINE 0.112 MG TAB PO SCH (06:30)
[2019-08-03] MEDS: BLOOD GLUCOSE MONITORING 1 DEV DEV FS SCH ×4 (06:32→20:40)
[2019-08-03] MEDS: INSULIN LISPRO SLIDING SCALE 100 UNITS/ML VIAL SUBQ PRN ×4 (06:34→20:55)
[2019-08-03 06:46] LABS: BASOPHILS # (AUTO) 0.1 K/uL (0.00-0.22); BASOPHILS % (AUTO) 1.1 % (0.0-2.0); EOSINOPHILS # (AUTO) 0.3 K/uL (0-0.4); EOSINOPHILS % (AUTO) 4.5 % (0.0-4.0); HEMATOCRIT 34.9 % (36-48); HEMOGLOBIN 11.3 g/dL (12.0-16.0); LYMPHOCYTES # (AUTO) 0.4 K/uL (2.5-16.5); LYMPHOCYTES % (AUTO) 5.9 % (20.5-51.1); MEAN CORPUSCULAR HEMOGLOBIN 31 pg (27-31); MEAN CORPUSCULAR HGB CONC 32 g/dL (33-37); MEAN CORPUSCULAR VOLUME 97.1 fL (80-94); MONOCYTES # (AUTO) 0.9 K/uL (0.8-1.0); MONOCYTES % (AUTO) 11.7 % (1.7-9.3); NEUTROPHILS # (AUTO) 5.8 K/uL (1.8-7.7); NEUTROPHILS % (AUTO) 76.8 % (42.2-75.2); PLATELET COUNT (AUTO) 259 K/uL (140-450); RED CELL DISTRIBUTION WIDTH 16.2 % (11.6-13.7); WHITE BLOOD COUNT (AUTO) 7.6 K/uL (4.8-10.8)
--- NOTE | 2019-08-03 07:00 | NUR ---
CONDITION REMAIN STABLE. WILL ENDORSE TO AM SHIFT NURSE FOR CONTINUITY OF CARE.
--- NOTE | 2019-08-03 07:15 | NUR ---
RECEIVED PATIENT FROM NIGHT NURSE. PATIENT IS AWAKE AND ALERT. RESP EVEN AND UNLABORED ON 2L NC. LAC 20 NOTED AND RIGHT UPPER ARM AV SHUNT. PATIENT DENIES OF PAIN OR DISCOMFORT AT THIS TIME. NPO WAITING FOR OR. PLAN OF CARE DISCUSSED WITH PATIENT, PATIENT VERBALIZED UNDERSTANDING. PENDING CARDIOLOGY CONSULT TO GIVE GO AHEAD FOR OR PROCEDURE. WILL CONTINUE WITH CARE.
[2019-08-03 07:21] LABS: ANION GAP 15.6 (8-16); CARBON DIOXIDE 27.6 mmol/L (21-32); CREATININE 3.9 mg/dL (0.6-1.3); POTASSIUM 4.2 mmol/L (3.5-5.1)
[2019-08-03] MEDS: METOCLOPRAMIDE 10 MG TAB PO SCH ×4 (07:30→16:30)
[2019-08-03 07:31] LABS: MAGNESIUM 2.1 mg/dL (1.8-2.4); PHOSPHORUS 4.7 mg/dL (2.5-4.9)
[2019-08-03] MEDS ORDERED: LORazepam 1 MG TAB PO PRN (07:40)
--- NOTE | 2019-08-03 07:46 | NUR ---
SPOKE TO DR SAGE. OR PROCEDURE CANCELLED. RESUME DIET AND MEDICATIONS ORDERED. CARDIOLOGY CONSULT PENDING FURTHER NOTICE.
[2019-08-03 08:00] VITALS: BP 103/62
[2019-08-03] MEDS: FERROUS SULFATE 325 MG TABEC PO SCH (09:42)
[2019-08-03] MEDS: LOSARTAN 50 MG TAB PO SCH ×2 (09:44→20:42)
[2019-08-03] MEDS: PREGABALIN 50 MG CAP PO SCH ×2 (09:44→20:40)
[2019-08-03] MEDS: PREGABALIN 25 MG CAP PO SCH ×2 (09:44→20:41)
[2019-08-03] MEDS: LORazepam 1 MG TAB PO SCH ×2 (09:45→20:42)
--- NOTE | 2019-08-03 09:53 | NUR ---
MORNING ROUTINE MEDICATIONS GIVEN. LAC IV DISLODGED. NO IV SITE AT THIS TIME. PATIENT REFUSED REGLAN STATING IT'S MAKING HER ANXIOUS. BP 103/62 HR 79. 95% ON 2LNC. NO NOTED DISTRESS AT THIS TIME. CALL LIGHT WITHIN REACH. WILL CONTINUE TO MONITOR.
[2019-08-03 12:00] VITALS: BP 136/64
--- NOTE | 2019-08-03 14:42 | NUR ---
DISCHARGE PLANNING: THIS IS A 49 Y/O FEMALE PATIENT FROM HOME, WHO CAME IN DUE TO RIGHT FOOT PAIN, FLUID OVERLOAD. PAST MEDICAL HISTORY INCLUDE ESRD ON DIALYSIS T--SAT AT [facility] [place], HTN, DIABETES, CHF AND NEUROPATHY. INITIAL DIAGNOSIS OF RIGHT TRIMALLEOLAR FRACTURE AND ESRD. BUN/CREA 38/3.9. RIGHT ANKLE X RAY SHOWED MILDLY DISPLACED TRIMALLEOLAR ANKLE FRACTURE WITH MODERATE VALGUS ANGULATION. ON ZOSYN. CXR ON ADMISSION SHOWED SMALL TO MODERATE RIGHT AND TRACE LEFT PLEURAL EFFUSION. ASSOCIATED BIBASILAR ATELECTASIS. SUPERIMPOSED INFILTRATE OR EDEMA, MILD CARDIOMEGALY. FOR HD TODAY. NEPHRO, CARDIO, PODIATRY AND PULMO CONSULTS IN PLACE. DC PLAN BACK TO HOME ONCE STABLE. Addendum: 08/04/19 at 1055 by Allyson Leong CM DC PLANNING: PT CLEARED BY PEDIATRIC NURSE AND WENT FOR ORIF BY PODIATRY, CONTINUE CURRENT THERAPY DC PLAN PER PT RECOMMENDATIONS. CM TO FOLLOW. Addendum: 08/04/19 at 1609 by Janel Bryant CM DC PLAN TO [facility] [place] FOR PT OVER THE WEEKEND. REFERRAL SENT TO [facility] [place]. PER BIJAL THEY WILL REVIEW REFERRAL. CONTACTED [facility] AT [phone], ABLE TO SPEAK TO RY. SHE STATED PATIENT'S CHAIR TIME IS M-W- AT 1300. BIJAL OF [facility] [place] MADE AWARE. Addendum: 08/04/19 at 1620 by Janel Bryant LATE ENTRY: CONTACTED PATIENT AT THE BEDSIDE [id number] TO DISCUSS DC PLAN AND IS IN AGREEMENT. WHEN ASKED IF SHE HAS ANY PREFERENCE, SHE ANSWERED NO. INFORMED HER THAT I SEND OVER THE REFERRAL TO [facility] AND IS IN AGREEMENT Addendum: 08/05/19 at 1345 by Gwen Bonilla PATIENTS SECOND COVID TEST IS STILL PENDING, [facility] [place] IS REQUESTING TWO COVID TEST. Addendum: 08/05/19 at 1502 by Gwen Bonilla CM SPOKE WITH VIBHA AT [facility] [phone]. HE SAID THAT PATIENTS MEDICARE WILL COVER THE WHEEL CHAIR. FAXED PATIENTS CLINICALS TO VIBHA FAX # [phone]. Addendum: 08/05/19 at 1503 by Gwen Bonilla CM SPOKE WITH DR. SAGE HE SAID PATIENT WILL MOST LIKELY NOT BE DISCHARGED UNTIL WEDNESDAY.
--- NOTE | 2019-08-03 15:20 | NUR ---
HEMODIALYSIS DONE, OUTPUT 2.5L. PATIENT IS IN STABLE CONDITION.
[2019-08-03 16:00] VITALS: BP 137/66
--- NOTE | 2019-08-03 17:35 | NUR ---
IV SITE OBTAINED TO LEFT HAND 22. ZOSYN ADMINISTERED IVPB. MORPHINE GIVEN FOR PAIN TO RIGHT ANKLE.
--- NOTE | 2019-08-03 19:30 | NUR ---
ENDORSED PATIENT TO NIGHT NURSE. PATIENT IS IN STABLE CONDITION
--- NOTE | 2019-08-03 19:31 | NUR ---
RECEIVED ENDORSEMENT FROM AM SHIFT RN. PATIENT IS IN BED. AAOX4. NO SOB. ON 2 LPM VIA NC. NOTED LH 22 GAUGE IV SITE. INTACT. [facility] WITH BRUIT AND THRILL NOTED. DIALYSIS WAS DONE 12 NOON TODAY. THEY TOOK OUT 2.5 LITERS PER ENDORSEMENT. FALL RISK PROTOCOL IN PLACE. PLAN OF CARE WAS DISCUSSED. CALL LIGHT WITHIN REACH. WILL CONTINUE TO MONITOR.
[2019-08-03 20:00] VITALS: BP 134/64
--- NOTE | 2019-08-03 20:40 | NUR ---
DUE MEDS GIVEN ORDERED. MED EDUCATION PROVIDED. TOLERATED WELL.
[2019-08-03] MEDS: ZOLPIDEM 5 MG TAB PO SCH (20:44)
--- NOTE | 2019-08-03 22:04 | NUR ---
ZOSYN 2.25GM IV GIVEN ORDERED. NO A/R NOTED. MED EDUCATION PROVIDED.
--- NOTE | 2019-08-03 22:55 | NUR ---
PATIENT WAS TAKEN TO CT SCAN VIA GURNEY.
--- NOTE | 2019-08-03 23:01 | NUR ---
PATIENT IS BACK TO HER ROOM FROM CT SCAN VIA GURNEY. NO SOB. DENIES PAIN.
[2019-08-04] VITALS: BP 125/67
--- NOTE | 2019-08-04 02:11 | NUR ---
PATIENT IS RESTING. NO SOB NOTED.
--- NOTE | 2019-08-04 03:23 | NUR ---
PATIENT IS ASLEEP, RESPIRATION EVEN AND UNLABORED.
[2019-08-04 04:00] VITALS: BP 119/60
[2019-08-04] MEDS: MORPHINE SULFATE 2 MG/ML SYR IVP PRN ×3 (04:58→21:12)
--- NOTE | 2019-08-04 04:58 | NUR ---
PATIENT C/O R ANKLE PAIN. 10/25. REPOSITIONED. PAIN MED GIVEN ORDERED. MED EDUCATION PROVIDED. WILL CONTINUE TO MONITOR.
[2019-08-04 05:50] LABS: BASOPHILS # (AUTO) 0.1 K/uL (0.00-0.22); BASOPHILS % (AUTO) 1.5 % (0.0-2.0); EOSINOPHILS # (AUTO) 0.2 K/uL (0-0.4); EOSINOPHILS % (AUTO) 2.6 % (0.0-4.0); HEMATOCRIT 32.5 % (36-48); HEMOGLOBIN 10.6 g/dL (12.0-16.0); LYMPHOCYTES # (AUTO) 0.8 K/uL (2.5-16.5); LYMPHOCYTES % (AUTO) 11.4 % (20.5-51.1); MEAN CORPUSCULAR HEMOGLOBIN 32 pg (27-31); MEAN CORPUSCULAR HGB CONC 33 g/dL (33-37); MEAN CORPUSCULAR VOLUME 97.2 fL (80-94); NEUTROPHILS # (AUTO) 4.9 K/uL (1.8-7.7); NEUTROPHILS % (AUTO) 70.5 % (42.2-75.2); PLATELET COUNT (AUTO) 263 K/uL (140-450); RED BLOOD CELL COUNT(AUTO) 3.35 MIL/uL (4.20-5.40); RED CELL DISTRIBUTION WIDTH 16.4 % (11.6-13.7); WHITE BLOOD COUNT (AUTO) 6.9 K/uL (4.8-10.8)
--- NOTE | 2019-08-04 05:58 | NUR ---
PATIENT DENIES PAIN. NO SOB.
[2019-08-04] MEDS: LEVOTHYROXINE 0.112 MG TAB PO SCH (06:38)
[2019-08-04] MEDS: PIPERACILLIN/TAZOBACTAM 2.25 GM in DEXTROSE 5% 50 ML IV SCH ×3 (06:39→22:21)
[2019-08-04] MEDS: BLOOD GLUCOSE MONITORING 1 DEV DEV FS SCH ×4 (06:39→21:00)
[2019-08-04] MEDS: METOCLOPRAMIDE 10 MG TAB PO SCH ×3 (06:43→16:30)
--- NOTE | 2019-08-04 07:00 | NUR ---
ORDERED TEST. NOTED. PATIENT REFUSED TEST.
--- NOTE | 2019-08-04 07:10 | NUR ---
PATIENT WAS TAKEN TO SURGERY VIA GURNEY. WILL ENDORSE TO AM SHIFT RN FOR CONTINUITY OF CARE.
[2019-08-04 07:11] LABS: ANION GAP 9.9 (8-16); CARBON DIOXIDE 28.9 mmol/L (21-32); CREATININE 3.7 mg/dL (0.6-1.3); POTASSIUM 3.8 mmol/L (3.5-5.1)
--- NOTE | 2019-08-04 07:20 | NUR ---
RECEIVED BEDSIDE REPORT FROM NIGHTSHIFT NURSE. PT IN SURGERY UPON TIME OF REPORT. WILL CONTINUE TO MONITOR
[2019-08-04] MEDS: BUPIVACAINE-MPF 0.5% 30 ML VIAL INJ ONE ×2 (08:30→11:48)
[2019-08-04] MEDS: LORazepam 1 MG TAB PO SCH ×2 (09:00→21:04)
[2019-08-04] MEDS ORDERED: HYDROGEN PEROXIDE 3% 240 ML BTL TP ONE (10:36)
[2019-08-04] MEDS ORDERED: BLOOD GLUCOSE MONITORING 1 DEV DEV FS SCH (11:05)
[2019-08-04] MEDS ORDERED: ONDANSETRON 4 MG/2 ML VIAL IVP PRN (11:05)
[2019-08-04 11:08] LABS: BASOPHILS # (AUTO) 0.1 K/uL (0.00-0.22); BASOPHILS % (AUTO) 1.5 % (0.0-2.0); EOSINOPHILS # (AUTO) 0.1 K/uL (0-0.4); EOSINOPHILS % (AUTO) 0.9 % (0.0-4.0); HEMATOCRIT 30.8 % (36-48); HEMOGLOBIN 10.2 g/dL (12.0-16.0); LYMPHOCYTES # (AUTO) 0.4 K/uL (2.5-16.5); LYMPHOCYTES % (AUTO) 6.5 % (20.5-51.1); MEAN CORPUSCULAR HEMOGLOBIN 32 pg (27-31); MEAN CORPUSCULAR HGB CONC 33 g/dL (33-37); MEAN CORPUSCULAR VOLUME 96.6 fL (80-94); MONOCYTES # (AUTO) 0.2 K/uL (0.8-1.0); MONOCYTES % (AUTO) 3.6 % (1.7-9.3); NEUTROPHILS % (AUTO) 87.5 % (42.2-75.2); PLATELET COUNT (AUTO) 238 K/uL (140-450); RED BLOOD CELL COUNT(AUTO) 3.18 MIL/uL (4.20-5.40); RED CELL DISTRIBUTION WIDTH 16.3 % (11.6-13.7); WHITE BLOOD COUNT (AUTO) 6.8 K/uL (4.8-10.8)
[2019-08-04] MEDS: HYDROmorphone 1 MG/ML AMP IVP PRN ×2 (11:20→11:30)
[2019-08-04] MEDS ORDERED: HYDROmorphone PFS 2 MG/ML SYR ONE (11:22)
[2019-08-04 12:00] VITALS: BP 136/71
--- NOTE | 2019-08-04 12:00 | NUR ---
PT RETURNED FROM OR. REPORT GIVEN AT BEDSIDE. PT TOLERATED WELL. SAFETY MEASURES IN PLACE. WILL CONTINUE TO MONITOR
--- NOTE | 2019-08-04 12:15 | NUR ---
PT BLOOD SUGAR IS 305. PRN INSULIN WILL BE GIVEN WITH NEXT MEAL. MEDICATION EDUCATION PERFORMED. PT VERBALIZED UNDERSTANDING. SAFETY MEASURES IN PLACE. WILL CONTINUE TO MONITOR
[2019-08-04] MEDS: LOSARTAN 50 MG TAB PO SCH ×3 (12:23→21:05)
[2019-08-04] MEDS: PREGABALIN 50 MG CAP PO SCH ×2 (12:23→21:05)
[2019-08-04] MEDS: FERROUS SULFATE 325 MG TABEC PO SCH (12:23)
[2019-08-04] MEDS: PREGABALIN 25 MG CAP PO SCH ×2 (12:24→21:05)
[2019-08-04] MEDS: INSULIN LISPRO SLIDING SCALE 100 UNITS/ML VIAL SUBQ PRN ×2 (12:28→17:37)
--- NOTE | 2019-08-04 12:40 | NUR ---
ADMINISTERED SCHED MED PRESCRIBED PER MD ORDER. PT TOLERATED WELL. MEDICATION EDUCATION PERFORMED. PT APHASIC AND UNABLE TO VERBALIZE UNDERSTANDING. SAFETY MEASURES IN PLACE. WILL CONTINUE TO MONITOR
--- NOTE | 2019-08-04 13:32 | NUR ---
GRANITE SANDBLASTER APPRENTICE NOTE: Patient's Orientation Person Situation Place Time Information Provided By PATIENT Comments SW MET WITH PATIENT AT BEDSIDE Box Car Washer, Realtionship and Phone Number BRIAN MCLEAN DAUGHTER [phone] Healthcare Power of Time Clock Inspector No Does Patient Have a POLST No Identifying Problems No Social Work Triggers Is A Social Work Consult Needed No Mandate Report Filed No Explanation Of Identifying Problems PATIENT IS A 49-YEAR-OLD FEMALE ADMITTED FOR RIGHT TRIMALLECULAR FRACTURE. PATIENT HAS PMHX OF ESRD WED//WED//SAT, HYPERTENSION, DIABETES, CHF, AND NEUROPATHY. Admitted From Home Pre-Admission Level Of Functioning Status Assist With ADL Prior Resources/Services Used In Last 12 Months [facility] Prior DME Home Oxygen Dialysis Hemodialysis Name And Phone Number of Dialysis Facility [facility] - [phone] ESRD Outpatient Days Mode Of Transportation to Dialysis [facility] D[facility] Comments PATIENT COULD NOT RECALL CHAIR TIME. Living Situation Lives With Family House Patient Had Caregiver Yes Home Support No Caregiver Issues Financial Issues No Known Financial Issue Referral To The Financial Counselor Needed No Factors/Needs No D/C Needs Identified Pt/Rep Participated In Discharge Plan Yes Discharge Plan Comments TENTATIVE DISCHARGE PLAN IS FOR PATIENT TO RETURN HOME.
--- NOTE | 2019-08-04 13:45 | NUR ---
HOURLY ROUNDING. PT ASLEEP IN BED. RESPONSIVE TO VERBAL AND TACTILE STIMULI. RESPIRATIONS EVEN AND UNLABORED WITH NO SOB OR RESPIRATORY DISTRESS. SKIN WARM AND DRY TO TOUCH. SAFETY MEASURES IN PLACE. WILL CONTINUE TO MONITOR.
--- NOTE | 2019-08-04 15:30 | NUR ---
PT EATING SNACK. ABLE TO MAKE NEEDS KNOWN. RESPIRATIONS EVEN AND UNLABORED WITH NO SOB OR RESPIRATORY DISTRESS. SKIN WARM AND DRY TO TOUCH. SAFETY MEASURES IN PLACE. WILL CONTINUE TO MONITOR.
[2019-08-04 16:00] VITALS: BP 127/67
--- NOTE | 2019-08-04 16:10 | NUR ---
OBTAINED COVID SWAB PRESCRIBED PER MD ORDER. SPECIMEN SENT TO LAB. PT TOLERATED WELL. SAFETY MEASURES IN PLACE. WILL CONTINUE TO MONITOR
--- NOTE | 2019-08-04 16:30 | NUR ---
PT BLOOD SUGAR IS 174. PRN INSULIN WILL BE ADMINISTERED PRESCRIBED PER MD ORDER. SAFETY MEASURES IN PLACE. WILL CONTINUE TO MONITOR
--- NOTE | 2019-08-04 16:41 | NUR ---
P.T. NOTES P.T. EVAL COMPLETED; WILL BENEFIT W/ P.T. POST ACUTE STAY.
[2019-08-04] MEDS: ONDANSETRON 4 MG/2 ML VIAL IM/IVP PRN (17:38)
--- NOTE | 2019-08-04 17:45 | NUR ---
PT FAMILY BROUGHT PERSONAL BELONGINGS IN GREEN BAG;. BAG GIVEN TO PATIENT. SAFETY MEASURES IN PLACE. WILL CONTINUE TO MONITOR
--- NOTE | 2019-08-04 19:12 | NUR ---
ENDORSED AT BEDSIDE TO NIGHTSHIFT NURSE FOR CONTINUITY OF CARE. PT IS STABLE
--- NOTE | 2019-08-04 19:15 | NUR ---
RECEIVED ENDORSEMENT FROM AM SHIFT RN. PATIENT IS IN BED AAOX4. DENIES PAIN. NO SOB. S/P ANKLE SURGERY TODAY. FOR HD TOMORROW. DIALYSIS SITE AT [facility], WITH [facility]. IV SITE AT LEFT HAND 22G. ON DROPLET PRECAUTION ISOLATION FOR COVID 19, PENDING 2ND RESULT. TELE MONITOR ATTACHED. PLAN OF CARE WAS DISCUSSED. CALL LIGHT WITHIN REACH. WILL CONTINUE TO MONITOR.
[2019-08-04 20:00] VITALS: BP 115/69
--- NOTE | 2019-08-04 21:04 | NUR ---
DUE MEDS GIVEN ORDERED. NO A/R NOTED. WILL CONTINUE TO MONITOR.
[2019-08-04] MEDS: ZOLPIDEM 5 MG TAB PO SCH (21:06)
[2019-08-05] VITALS (7 sets, daily range): BP systolic 127–160; BP diastolic 65–77
[2019-08-05] MEDS: MORPHINE SULFATE 2 MG/ML SYR IVP PRN ×6 (00:50→22:17)
--- NOTE | 2019-08-05 00:50 | NUR ---
PATIENT C/O 9/10 SEVERE PAIN AT THE SURGICAL SITE. ELEVATED AND PAIN MED GIVEN ORDERED.
--- NOTE | 2019-08-05 01:50 | NUR ---
PATIENT IS SLEEPING. NO PAIN NOTED.
[2019-08-05] MEDS: BLOOD GLUCOSE MONITORING 1 DEV DEV FS SCH ×4 (05:52→21:00)
[2019-08-05] MEDS: PIPERACILLIN/TAZOBACTAM 2.25 GM in DEXTROSE 5% 50 ML IV SCH ×2 (05:53→14:38)
[2019-08-05] MEDS: LEVOTHYROXINE 0.112 MG TAB PO SCH (05:53)
--- NOTE | 2019-08-05 05:53 | NUR ---
ZOSYN IV GIVEN. NO A/R NOTED. NO SOB.
[2019-08-05 06:44] LABS: BASOPHILS # (AUTO) 0.1 K/uL (0.00-0.22); BASOPHILS % (AUTO) 0.9 % (0.0-2.0); EOSINOPHILS % (AUTO) 0.2 % (0.0-4.0); HEMATOCRIT 27.3 % (36-48); LYMPHOCYTES # (AUTO) 0.7 K/uL (2.5-16.5); LYMPHOCYTES % (AUTO) 8.8 % (20.5-51.1); MEAN CORPUSCULAR HEMOGLOBIN 32 pg (27-31); MEAN CORPUSCULAR HGB CONC 33 g/dL (33-37); MEAN CORPUSCULAR VOLUME 97.5 fL (80-94); MONOCYTES # (AUTO) 0.9 K/uL (0.8-1.0); MONOCYTES % (AUTO) 10.4 % (1.7-9.3); NEUTROPHILS # (AUTO) 6.6 K/uL (1.8-7.7); NEUTROPHILS % (AUTO) 79.7 % (42.2-75.2); PLATELET COUNT (AUTO) 226 K/uL (140-450); RED CELL DISTRIBUTION WIDTH 16.1 % (11.6-13.7); WHITE BLOOD COUNT (AUTO) 8.3 K/uL (4.8-10.8)
[2019-08-05 07:13] LABS: ANION GAP 13.5 (8-16); CARBON DIOXIDE 25.7 mmol/L (21-32); POTASSIUM 4.2 mmol/L (3.5-5.1)
--- NOTE | 2019-08-05 07:15 | NUR ---
KEPT COMFORTABLE. NO DISTRESS NOTED. ENDORSED TO AM SHIFT RN FOR CONTINUITY OF CARE.
--- NOTE | 2019-08-05 07:16 | NUR ---
RECEIVED REPORT FROM ANIMAL ATTENDANTS AND TRAINERS RN. PATIENT IS IN BED AAOX4. AWARE OF NEXT SCHEDULED PAIN MED, LAST MEDICATED FOR PAIN AT 0616. NO SOB. S/P ANKLE SURGERY TODAY. PT AWARE HD SCHEDULED FOR TODAY. DIALYSIS SITE AT [facility], WITH [facility] AND [facility]LL. IV SITE AT LEFT HAND 22G. ON DROPLET PRECAUTION ISOLATION FOR COVID 19, PENDING 2ND RESULT. TELE MONITOR ATTACHED WITH SR. PLAN OF CARE WAS DISCUSSED. PATIENT VERBALIZED UNDERSTANDING. CALL LIGHT WITHIN REACH. WILL CONTINUE TO MONITOR.
[2019-08-05] MEDS ORDERED: DEXAMETHASONE 4 MG/ML VIAL ONE (07:26)
[2019-08-05] MEDS ORDERED: SUCCINYLCHOLINE CHLORIDE 200 MG/10 ML VIAL IVP ONE (07:26)
[2019-08-05] MEDS ORDERED: PROPOFOL 200 MG/20 ML VIAL IV ONE (07:26)
[2019-08-05] MEDS ORDERED: ONDANSETRON 4 MG/2 ML VIAL ONE (07:26)
[2019-08-05] MEDS ORDERED: SEVOFLURANE 250 ML BTL INH ONE (07:26)
[2019-08-05] MEDS ORDERED: ETOMIDATE 20 MG/10 ML VIAL IVP ONE (07:26)
[2019-08-05] MEDS ORDERED: ROCURONIUM 50 MG/5 ML VIAL IV ONE (07:26)
[2019-08-05] MEDS: METOCLOPRAMIDE 10 MG TAB PO SCH ×3 (07:30→16:22)
[2019-08-05] MEDS: LORazepam 1 MG TAB PO SCH ×2 (08:43→21:58)
[2019-08-05] MEDS: FERROUS SULFATE 325 MG TABEC PO SCH (08:43)
[2019-08-05] MEDS: LOSARTAN 50 MG TAB PO SCH ×2 (08:43→21:58)
[2019-08-05] MEDS: PREGABALIN 50 MG CAP PO SCH ×2 (08:44→21:59)
[2019-08-05] MEDS: PREGABALIN 25 MG CAP PO SCH ×2 (08:44→21:59)
--- NOTE | 2019-08-05 08:45 | NUR ---
ORDERED MEDICATIONS GIVEN. PATIENT AWARE OF NEXT SCHEDULED PRN PAIN MEDICATIONS. ALL NEEDS MET AT THIS TIME. WILL CONTINUE TO MONITOR PATIENT.
--- NOTE | 2019-08-05 10:20 | NUR ---
HD RN here. Patient aware. Patient currently resting in bed watching TV. No complaints at this time. Will continue to monitor patient.
--- NOTE | 2019-08-05 12:30 | NUR ---
PATIENT CURRENTLY GETTING HD. RESTING WITH EYES CLOSED. BLOOD SUGAR 216. INSULIN NOT COVERED AT THIS TIME BECAUSE PATIENT REFUSING TO EAT LUNCH D/T TIREDNESS FROM HD. WILL CONTINUE TO MONITOR PATIENT AND GIVE COVERAGE WHEN PATIENT EATS LUNCH.
--- NOTE | 2019-08-05 14:05 | NUR ---
PATIENT STILL HD. RESTING WITH EYES CLOSED. WILL CONTINUE TO MONITOR PATIENT AND GIVE COVERAGE WHEN PATIENT WAKES UP.
[2019-08-05] MEDS: INSULIN LISPRO SLIDING SCALE 100 UNITS/ML VIAL SUBQ PRN ×3 (14:34→22:39)
--- NOTE | 2019-08-05 14:40 | NUR ---
HD FINISHED, 2.5L REMOVED. PATIENT NOW AWAKE AND EATING LUNCH. INSULIN COVERAGE GIVEN TO PATIENT. SCHEDULED MEDICATION GIVEN. PATIENT TOLERATED THEM WELL. DROPLET PRECAUTIONS IN PLACE, CALL LIGHT WITHIN REACH, WILL CONTINUE TO MONITOR PATIENT.
[2019-08-05] MEDS: ONDANSETRON 4 MG/2 ML VIAL IM/IVP PRN ×2 (17:39→22:08)
--- NOTE | 2019-08-05 17:40 | NUR ---
PT MEDICATED FOR PAIN OF RIGHT ANKLE WITH PRN PAIN MEDICATION. PT VOMITING, PRN ZOFRAN GIVEN. BLOOD SUGAR 223, COVERAGE GIVEN. PATIENT HAS NO COMPLAINTS AT THIS TIME. PATIENT TRANSFERRED TO [facility], TELE MONITOR REMOVED. SAFETY AND DROPLET PRECAUTIONS IN PLACE, CALL LIGHT WITHIN REACH, WILL CONTINUE TO MONITOR PATIENT.
--- NOTE | 2019-08-05 19:15 | NUR ---
REPORT GIVEN TO OIL LEASE BROKER NURSE AT BEDSIDE FOR CONTINUITY OF CARE.
--- NOTE | 2019-08-05 19:30 | NUR ---
RECEIVED REPORT FROM GWEN RN DAYSHIFT NURSE AT BEDSIDE FOR CONTINUITY OF CARE, PT IN STABLE CONDITION.
--- NOTE | 2019-08-05 20:00 | NUR ---
PT AWAKE AND ALERT, SHE WAS REPOSITIONED IN BED AND RIGHT LOWER LEG DRESSING IN TACT WITH NO DRAINAGE NOTED. RIGHT LEG ELEVATED ON 3 PILLOWS ORDERED. SHE HAS A LAC 20 G RUNNING TO KVO. PT IS ALSO ON 2.5 LITERS OF 02 VIA N/C. PT V/S FOLLOWS: T 99.3 P 82 R 18 B/P 139/65 02 95% ALL FALLS PRECAUTIONS IN PLACE AND ALL REQUESTED NEEDS ATTENDED BY STAFF.
--- NOTE | 2019-08-05 21:00 | NUR ---
PT GIVEN ORDERED AMBIEN, ATIVAN, COZAAR, LYRICA AND HEPARIN, EDUCATION REGARDING MEDICATION PROVIDED AT BEDSIDE, PT VERBALIZED UNDERSTANDING. RIGHT LWEG DRESSING IN TACT ALL FLUIDS RUNNING ORDERED. ALL ORDERED PRECAUTIONS IN PLACE.
[2019-08-05] MEDS: ZOLPIDEM 5 MG TAB PO SCH (21:57)
--- NOTE | 2019-08-05 22:30 | NUR ---
PT C/O NAUSEA, PAIN AND CONSTIPATION PT GIVEN PRN OF MORPHINE, ZOFRAN AND COLACE. EDUCATION REGARDING PRN MEDICATION AND SIDE EFFECTS EXPLAINED AT BEDSIDE, PT ACKNOWLEDGED UNDERSTANDING.
[2019-08-06] MEDS: PIPERACILLIN/TAZOBACTAM 2.25 GM in DEXTROSE 5% 50 ML IV SCH ×2 (01:28→07:00)
--- NOTE | 2019-08-06 05:10 | NUR ---
PT FOUND UNRESPONSIVE CODE BLUE CALLED.
--- NOTE | 2019-08-06 05:20 | NUR ---
PT PICKED UP BY [facility] AT THIS TIME. RECORD OF SIGNED AND COMPLETED. Addendum: 08/06/19 at 1858 by Dwayne Moore RN INCORRECT TIME
[2019-08-06] MEDS ORDERED: INTUBATION KIT MC ONE (05:23)
--- NOTE | 2019-08-06 06:00 | NUR ---
RECEIVED PT FROM [facility] FLOOR @ THIS TIME, UNSTABLE, S/P CODE BLUE. PUPILS 5MM AND NON-REACTIVE, UNRESPONSIVE TO VERBAL AND TACTILE STIMULI. NO GAG REFLEX. ETT TO VENT WITH SETTINGS FOLLOWS: AC 16, VT 450, PEEP 5, FI02 100%. NGT TO RT NARES IN PLACE. PULSE 80, BP 95/61, SPO2 84%. LUNGS DIMINISHED THROUGHOUT. +S1, S2 UPON AUSCULTATION. SALINE LOCK 22G IV TO LEFT HAND NOTED, DIFFICULT TO FLUSH. AV SHUNT TO RUE WITH BRUIT AND THRILL. BED LOW AND LOCKED. WILL CONT TO MONITOR.
--- NOTE | 2019-08-06 06:18 | NUR ---
PT TRANSFERRED TO ICU FOR CLOSER MONITORING,PT IS TEMP INTUBATED AND HAS NG TUBE. REPORT GIVEN TO ICU NURSE AT BEDSIDE.
[2019-08-06] MEDS ORDERED: NOREPINEPHRINE 4 MG in DEXTROSE 5% 250 ML IV PRN (06:25)
--- NOTE | 2019-08-06 06:25 | NUR ---
PT WAS FOUND UN-RESPONSIVE CODE CALLED ROUGHLY 05:15 PT WAS INTUBATED AND TRANSFERRED TO ICU BED 4 ON SETTINGS OF ACVC 450 PEEP 5 F16 FIO2 100% TUBE SECURED @ 21CM (TEETH ) BMV @ BEDSIDE VENT PLUGGED INTO RED OUTLET
[2019-08-06] MEDS ORDERED: NOREPINEPHRINE 4 MG/4 ML VIAL IV ONE (06:27)
[2019-08-06] MEDS: LEVOTHYROXINE 0.112 MG TAB PO SCH (06:30)
--- NOTE | 2019-08-06 06:44 | NUR ---
gr[facility]t called pt meera and cpr was started and acls drugs given dr. rodriguez at bedside, at 0653 got heart rate back and pt was placed back on vent
[2019-08-06 06:45] LABS: HEMOGLOBIN 9.2 g/dL (12.0-16.0); MONOCYTES # (AUTO) 0.3 K/uL (0.8-1.0); WHITE BLOOD COUNT (AUTO) 10.7 K/uL (4.8-10.8)
[2019-08-06 06:51] LABS: BASOPHILS # (AUTO) 0.1 K/uL (0.00-0.22); BASOPHILS % (AUTO) 1.1 % (0.0-2.0); EOSINOPHILS % (AUTO) 0.4 % (0.0-4.0); HEMATOCRIT 29.5 % (36-48); LYMPHOCYTES # (AUTO) 1.9 K/uL (2.5-16.5); MEAN CORPUSCULAR HEMOGLOBIN 32 pg (27-31); MEAN CORPUSCULAR HGB CONC 31 g/dL (33-37); MEAN CORPUSCULAR VOLUME 103.1 fL (80-94); MONOCYTES % (AUTO) 3.2 % (1.7-9.3); NEUTROPHILS # (AUTO) 8.3 K/uL (1.8-7.7); PLATELET COUNT (AUTO) 162 K/uL (140-450); RED BLOOD CELL COUNT(AUTO) 2.86 MIL/uL (4.20-5.40); RED CELL DISTRIBUTION WIDTH 16.2 % (11.6-13.7)
[2019-08-06] MEDS ORDERED: NALOXONE 0.4 MG/ML VIAL IVP ONE (07:00)
[2019-08-06] MEDS ORDERED: NALOXONE 0.4 MG/ML VIAL ONE ×2 (07:06→07:09)
--- NOTE | 2019-08-06 07:06 | NUR ---
1.2 MG/3ML OF NARCAN GIVEN IV PUSH. ORDERED BY DR SAGE.
[2019-08-06 07:10] LABS: ALBUMIN 1.5 g/dL (3.4-5.0); TOTAL BILIRUBIN 0.7 mg/dL (0.0-1.0)
[2019-08-06] MEDS: EPINEPHrine 1:1000 (1 mg/mL) 1 MG in DEXTROSE 5% 250 ML IV PRN ×2 (07:10→08:36)
--- NOTE | 2019-08-06 07:10 | NUR ---
pt went meera again and [facility] was called cpr and acls drugs given with at bedside at 0721 pulse returned and pt placed back on vent
--- NOTE | 2019-08-06 07:10 | NUR ---
NO PALPABLE PULSES, HR 44. CODE BLUE CALLED. SEE CODE BLUE SHEET.
[2019-08-06] MEDS ORDERED: EPINEPHrine PFS 0.1 MG/ML SYR IVP ONE ×2 (07:14→07:15)
[2019-08-06 07:20] LABS: CARBON DIOXIDE 18.8 mmol/L (21-32); POTASSIUM 4.7 mmol/L (3.5-5.1)
--- NOTE | 2019-08-06 07:21 | NUR ---
PALPABLE PULSES NOTED AT THIS TIME. SEE CODE BLUE SHEET FOR DETAILS.
--- NOTE | 2019-08-06 07:21 | NUR ---
EDNORSED PT CARE TO DAYSDAYAN RN @ THIS TIME.
[2019-08-06 07:22] LABS: ANION GAP 26.9 (8-16); CREATININE 4.1 mg/dL (0.6-1.3)
[2019-08-06] MEDS ORDERED: EPINEPHrine 1:1000 - 1 MG/ML AMP ONE (07:23)
[2019-08-06 07:24] VITALS: BP 127/60
--- NOTE | 2019-08-06 07:24 | NUR ---
rec'd pt on carescape vent settings ac 16 vt 450 peep 5 fio2 100% alarms on and audible and ambu bag at hob and vent is plugged into red outlet, sxn pt moderate amt of frothy blood secretions b\s are clear, pt is orally intubated with ett 7.5 21 cm at lip.
--- NOTE | 2019-08-06 07:25 | NUR ---
RECEIVED REPORT FROM NIGHT NURSE. PT CODED 3 TIMES PRIOR TO ARRIVAL, UNSTABLE CONDITION. ETT TO VENT. NGT TO RIGHT NARE IN PLACE ON INTERMITTENT SUCTION. STANDARD PRECAUTIONS IN PLACE. HD DIALYSIS PT WITH [facility] IN PLACE SCHEDULE M,T,W,R, SAT. ON LEVOPHED 15MCG. S/P ANKLE FX, WITH IMMOBILIZATION IN PLACE. SAFETY MEASURES IN PLACE. CALL LIGHT WITHIN REACH. WILL CONTINUE TO MONITOR.
--- NOTE | 2019-08-06 07:35 | NUR ---
[facility] called and cpr started and acls drugs given dr. loredo and dr. shin at bedside pulse returned at 0740 pt back on vent
--- NOTE | 2019-08-06 07:51 | NUR ---
[facility] called and cpr and acls drugs given dr. loredo at bedside at 0755 pluse returned and placed back on vent
--- NOTE | 2019-08-06 08:05 | NUR ---
code blue called cpr and acls drugs given dr. loredo and dr. shin at bedside, at [address] loredo Addendum: 08/06/19 at 0829 by Cheyanne Alfaro RT error pt was pronounced by dr. loredo at 0815
--- NOTE | 2019-08-06 08:55 | NUR ---
[facility] CALLED AT THIS TIME. REFERRAL # [id number]
--- NOTE | 2019-08-06 09:20 | NUR ---
CALLED [facility] OFFICE AND GAVE PT INFORMATION. WILL AWAIT CALL BACK
--- NOTE | 2019-08-06 09:51 | NUR ---
08/06/19 RD INITIAL ASSESSMENT COMPLETED PLEASE REFER TO NUTRITION ASSESSMENT UNDER CARE ACTIVITY FOR ESTIMATED NUTRITIONAL NEEDS. 1. CONTINUE RENAL, 60GM CCHO DIET TOLERATED 2. RECOMMEND NEPRO BID TOLERATED TO INCREASE CALORIE INTAKE 3. RECOMMEND NEPHROVITE 4. RD TO FOLLOW-UP 3-5 DAYS, MODERATE RISK TAMMY REYNA RD
[2019-08-06 10:56] LABS: LYMPHOCYTES % (AUTO) 17.4 % (20.5-51.1); NEUTROPHILS % (AUTO) 77.9 % (42.2-75.2)
--- NOTE | 2019-08-06 11:15 | NUR ---
RECEIVED CALL FROM SUPERVISOR ESTIMATOR AND DRAFTER CELE, CASE NUMBER IS [id number]
--- NOTE | 2019-08-06 17:20 | NUR ---
PT PICKED UP BY [facility] AT THIS TIME. RECORD OF SIGNED AND COMPLETED.
== END 2019-08-06 08:15 | disposition expired | DRG 492 ==
LOC: MED 17:59 → EEVIPCON 21:13 → MTU 21:13 → MIC 08-06 07:03
PROVIDERS: ADMIT General Practice; ATTEND General Practice
PROC: 2W3QX1Z Immobilization of Right Lower Leg using Splint (ICD-10-PCS; 2019-08-02)
PROC: 0BH17EZ Insertion of Endotracheal Airway into Trachea, Via Natural or Artificial Opening (ICD-10-PCS; principal; 2019-08-06)
PROC: 5A1935Z Respiratory Ventilation, Less than 24 Consecutive Hours (ICD-10-PCS; 2019-08-06)
PROC: 5A12012 Performance of Cardiac Output, Single, Manual (ICD-10-PCS; 2019-08-06)
PROC: 0QSG04Z Reposition Right Tibia with Internal Fixation Device, Open Approach (ICD-10-PCS; 2019-08-06)
PROC: 0QSJ04Z Reposition Right Fibula with Internal Fixation Device, Open Approach (ICD-10-PCS; 2019-08-06)
PROC: 0QSG04Z Reposition Right Tibia with Internal Fixation Device, Open Approach (ICD-10-PCS; 2019-08-06)
DX: S82.851A Displaced trimalleolar fracture of right lower leg, initial encounter for closed fracture (principal); E43 Unspecified severe protein-calorie malnutrition; J96.01 Acute respiratory failure with hypoxia; N18.6 End stage renal disease; I26.99 Other pulmonary embolism without acute cor pulmonale; J18.9 Pneumonia, unspecified organism; N17.0 Acute kidney failure with tubular necrosis; I50.43 Acute on chronic combined systolic (congestive) and diastolic (congestive) heart failure; I42.9 Cardiomyopathy, unspecified; I13.0 Hypertensive heart and chronic kidney disease with heart failure and stage 1 through stage 4 chronic kidney disease, or unspecified chronic kidney disease; D68.59 Other primary thrombophilia; E87.1 Hypo-osmolality and hyponatremia; E11.22 Type 2 diabetes mellitus with diabetic chronic kidney disease; Z99.2 Dependence on renal dialysis; Z20.828 Contact with and (suspected) exposure to other viral communicable diseases; Z88.8 Allergy status to other drugs, medicaments and biological substances; I46.9 Cardiac arrest, cause unspecified; Z98.891 History of uterine scar from previous surgery; Z68.27 Body mass index [BMI] 27.0-27.9, adult; E78.5 Hyperlipidemia, unspecified; E11.69 Type 2 diabetes mellitus with other specified complication; E11.40 Type 2 diabetes mellitus with diabetic neuropathy, unspecified; D64.9 Anemia, unspecified; W18.39XA Other fall on same level, initial encounter; Y93.89 Activity, other specified; Y92.89 Other specified places as the place of occurrence of the external cause; Y99.8 Other external cause status; E03.9 Hypothyroidism, unspecified; G43.909 Migraine, unspecified, not intractable, without status migrainosus; Z98.51 Tubal ligation status
CPT/HCPCS: 36415; 71045; 73610; 73700; 80048; 80053; 82728; 82948; 83036; 83605; 83615; 83735; 83880; 84100; 84443; 84484; 84703; 85025; 85610; 85651; 85730; 86140; 87040; 87081; 92950; 93005; 94002; 96374; 96375; 96376; 97110; 97112; 97163-GP; 99285; C1713; J0171; J0330; J1100; J1170; J1644; J1815; J2001; J2270; J2310; J2405; J2543; J2704; J3490; J7030; J7060; J7120; J8597; Q0092; U0003-CS